=== PATIENT | male | born 1965 | race Hispanic/Latino ===

== ENCOUNTER 2017-10-05 22:48 | Emergency (ER) | payer OTHER, SELFPAY ==
[2017-10-05] MEDS ORDERED: ONDANSETRON 4 MG/2 ML VIAL ONE (23:35)
[2017-10-05] MEDS ORDERED: FENTANYL CITR 100 MCG/2 ML ONE (23:35)
[2017-10-05] MEDS ORDERED: NA CHLORIDE 0.9% 1,000 ML ONE (23:35)
[2017-10-05 23:46] LABS: Absolute Lymphocytes (CBC) 2.1 K/uL (0.7-4.9); Absolute Monocytes 1.3 K/uL (0.1-1.3); Absolute Neutrophil 7.9 K/uL (1.8-8.0); Basophils % 1.1 % (0-1.3); Eosinophils % 1.9 % (0-4.4); Hematocrit 42.3 % (39.6-49.0); Lymphocytes % 17.9 % (15.3-44.8); MCH 29.3 pg (27.0-35.0); MCV 88.5 fL (80-100); MPV 9.7 fL (7.6-11.3); Monocytes % 11.3 % (3.3-12.3); RBC Red Blood Cell Count 4.78 M/uL (4.33-5.43)
[2017-10-05 23:47] LABS: Protime INR 1.19
[2017-10-06 00:04] LABS: Potassium 3.5 mEq/L (3.6-5.0)
[2017-10-06 00:10] LABS: Albumin 3.5 g/dL (3.2-5.5); Bilirubin Direct 0.1 mg/dL (0-0.2); Bilirubin Total 0.6 mg/dL (0.3-1.2); CKMB Creatine Kinase MB 0.9 ng/ml (0.3-4.0); Magnesium 2.1 mg/dL (1.8-2.5); Protein, Total 7.6 g/dL (6.0-8.3)
[2017-10-06 01:14] LABS: Urine Blood TRACE (NEG); Urine Glucose NEGATIVE (NEG); Urine Protein 1+ (NEG); Urine Specific Gravity >1.030 (1.005-1.030)
--- NOTE | 2017-10-06 01:32 | EDPHYS ---
Physician Documentation [facility] Name: Justin Khan Age: 52 yrs Sex: Male : 1965 Arrival Date: 10/05/2017 Time: 22:50 Bed 4 Private MD: ED Physician Ernst Thomas HPI: 10/05 23:10 This 52 yrs old Male presents to ER via EMS with complaints of Left body pain. heather 23:10 The patient presents with decreased range of motion, pain. The complaints affect the heather lateral aspect of left thigh, lateral aspect of left knee, lateral aspect of left calf, left lateral ankle, left hamstring, posterior aspect of left knee, left calf, left Achilles, medial aspect of left thigh, medial aspect of left knee, medial aspect of left calf, left medial ankle, left quadriceps, left knee, left sofia and anterior aspect of left ankle. Onset: The symptoms/episode began/occurred 4 day(s) ago. Modifying factors: The symptoms are alleviated by nothing. the symptoms are aggravated by movement. Associated signs and symptoms: Pertinent positives: of the left arm and left leg. Historical: - Allergies: 22:53 PENICILLINS; fc - Home Meds: 22:53 None [Active]; fc - PMHx: 22:53 Enlarged Prostate; fc - PSHx: 22:53 Knee surgery; fc - Immunization history:: Last tetanus immunization: up to date. - Social history:: Smoking status: Patient uses tobacco products, denies chronic smoking, but will smoke occasionally, Patient uses alcohol, occasionally. street drugs, marijuana. - Family history:: not pertinent. ROS: 23:10 Eyes: Negative for injury, pain, redness, and discharge, ENT: Negative for injury, heather pain, and discharge, Neck: Negative for injury, pain, and swelling, Respiratory: Negative for shortness of breath, cough, wheezing, and pleuritic chest pain, Back: Negative for injury and pain, : Negative for injury, bleeding, discharge, and swelling, Skin: Negative for injury, rash, and discoloration, Neuro: Negative for headache, weakness, numbness, tingling, and seizure, Psych: Negative for depression, anxiety, suicide ideation, homicidal ideation, and hallucinations, Allergy/Immunology: Negative for hives, rash, and allergies, Endocrine: Negative for neck swelling, polydipsia, polyuria, polyphagia, and marked weight changes, Hematologic/Lymphatic: Negative for swollen nodes, abnormal bleeding, and unusual bruising. 23:10 Constitutional: Positive for malaise. 23:10 Cardiovascular: Positive for chest pain. 23:10 Abdomen/GI: Positive for abdominal pain. 23:10 MS/extremity: Positive for decreased range of motion, pain, swelling, tenderness, of the left leg. Exam: 23:10 Constitutional: This is a well developed, well nourished patient who is awake, alert, heather and in no acute distress. Head/Face: Normocephalic, atraumatic. Eyes: Pupils equal round and reactive to light, extra-ocular motions intact. Lids and lashes normal. Conjunctiva and sclera are non-icteric and not injected. Cornea within normal limits. Periorbital areas with no swelling, redness, or edema. ENT: Nares patent. No nasal discharge, no septal abnormalities noted. Tympanic membranes are normal and external auditory canals are clear. Oropharynx with no redness, swelling, or masses, exudates, or evidence of obstruction, uvula midline. Mucous membranes moist. Neck: Trachea midline, no thyromegaly or masses palpated, and no cervical lymphadenopathy. Supple, full range of motion without nuchal rigidity, or vertebral point tenderness. No Meningismus. Chest/axilla: Normal chest wall appearance and motion. Nontender with no deformity. No lesions are appreciated. Cardiovascular: Regular rate and rhythm with a normal S1 and S2. No gallops, murmurs, or rubs. Normal PMI, no JVD. No pulse deficits. Respiratory: Lungs have equal breath sounds bilaterally, clear to auscultation and percussion. No rales, rhonchi or wheezes noted. No increased work of breathing, no retractions or nasal flaring. Abdomen/GI: Soft, non-tender, with normal bowel sounds. No distension or tympany. No guarding or rebound. No evidence of tenderness throughout. Male : Normal genitalia with no discharge or lesions. Skin: Warm, dry with normal turgor. Normal color with no rashes, no lesions, and no evidence of cellulitis. MS/ Extremity: Pulses equal, no cyanosis. Neurovascular intact. Full, normal range of motion. Neuro: Awake and alert, GCS 15, oriented to person, place, time, and situation. Cranial nerves II-XII grossly intact. Motor strength 5/5 in all extremities. Sensory grossly intact. Cerebellar exam normal. Normal gait. Psych: Awake, alert, with orientation to person, place and time. Behavior, mood, and affect are within normal limits. 23:10 Back: pain, that is mild, that is moderate, ROM is normal, normal spinal alignment noted, CVA tenderness, that is mild, muscle spasm, is not present. Vital Signs: 22:53 Weight 90.72 kg (R); Height 5 ft. 9 in. (175.26 cm) (R); Pain 10/10; fc 23:06 BP 142 / 98; Pulse 95; Resp 18; Temp 98.5(O); Pulse Ox 100% on R/A; Pain 10; lp1 10/06 00:04 BP 123 / 84; Pulse 81; Resp 20; Pulse Ox 98% on R/A; lp1 01:30 BP 124 / 69; Pulse 87; Resp 20; Pulse Ox 98% on R/A; lp1 02:00 BP 123 / 66; Pulse 89; Resp 13; Pulse Ox 99% on R/A; lp1 02:58 BP 126 / 79; Pulse 84; Resp 19; Pulse Ox 98% on R/A; lp1 04:00 BP 109 / 76; Pulse 75; Resp 19; Pulse Ox 100% on R/A; lp1 05:00 BP 127 / 74; Pulse 80; Resp 20; Pulse Ox 97% on R/A; lp1 06:07 BP 127 / 79; Pulse 84; Resp 18; Pulse Ox 97% on R/A; lp1 10/05 22:53 Body Mass Index 29.53 (90.72 kg, 175.26 cm) fc MDM: 10/05 23:03 Patient medically screened. [facility] 23:14 Data reviewed: vital signs, nurses notes, lab test result(s), EKG, radiologic studies, [facility] CT scan, plain films. 10/05 23:09 Order name: Basic Metabolic Panel; Complete Time: 00:38 [facility] 10/05 23:09 Order name: BNP; Complete Time: 00:38 [facility] 10/05 23:09 Order name: CBC with Diff; Complete Time: 00:38 [facility] 10/05 23:09 Order name: Ckmb; Complete Time: 00:38 [facility] 10/05 23:09 Order name: CPK; Complete Time: 00:38 [facility] 10/05 23:09 Order name: LFT's; Complete Time: 00:38 [facility] 10/05 23:09 Order name: Magnesium; Complete Time: 00:38 [facility] 10/05 23:09 Order name: PT-INR; Complete Time: 00:38 [facility] 10/05 23:09 Order name: Ptt, Activated; Complete Time: 00:38 [facility] 10/05 23:09 Order name: Troponin (emerg Dept Use Only); Complete Time: 00:38 [facility] 10/05 23:09 Order name: XRAY Chest (1 view) [facility] 10/05 23:09 Order name: Lipase; Complete Time: 00:38 [facility] 10/05 23:09 Order name: Urine Culture [facility] 10/06 00:47 Order name: Urine Dipstick--Ancillary (enter results); Complete Time: 01:27 [facility] 10/05 23:09 Order name: EKG; Complete Time: 23:10 [facility] 10/05 23:09 Order name: Cardiac monitoring; Complete Time: 23:13 [facility] 10/05 23:09 Order name: EKG - Nurse/Tech; Complete Time: 23:13 [facility] 10/05 23:09 Order name: IV Saline Lock; Complete Time: 23:13 [facility] 10/05 23:09 Order name: CT Aorta for Dissection [facility] 10/05 23:09 Order name: Labs collected and sent; Complete Time: 23:13 [facility] 10/05 23:09 Order name: O2 Per Protocol; Complete Time: 23:13 [facility] 10/05 23:09 Order name: O2 Sat Monitoring; Complete Time: 23:13 [facility] 10/05 23:09 Order name: Urine Dipstick-Ancillary (obtain specimen); Complete Time: 00:48 [facility] Administered Medications: 23:22 Drug: NS 0.9% 1000 ml Route: IV; Rate: 125 ml/hr; Site: right antecubital; 10/06 06:32 Follow up: IV Status: Infusion continued upon transfer [facility] 10/05 23:22 Drug: fentaNYL (PF) 50 mcg Route: IVP; Site: right antecubital; 10/06 00:07 Follow up: Response: Pain is decreased [facility] 10/05 23:23 Drug: Zofran 4 mg Route: IVP; Site: right antecubital; 1 10/06 00:07 Follow up: Response: No adverse reaction lp1 01:34 Drug: Heparin (DVT/PE- Bolus per protocol) - HEParin 80 units/kg {Co-Signature: lp1 aa1 (Jayla Martin RN).} Route: IVP; Site: right antecubital; 02:30 Follow up: Response: No adverse reaction lp1 01:35 Drug: Potassium Chloride 20 mEq Route: PO; aa1 02:30 Follow up: Response: No adverse reaction lp1 01:35 Drug: Rocephin - (cefTRIAXone) 1 grams Route: IVPB; Infused Over: 30 mins; Site: right aa1 antecubital; 02:30 Follow up: Response: No adverse reaction; IV Status: Completed infusion lp1 01:35 Drug: Lovenox 1 mg/kg Route: Sub-Q; Site: right lower abdomen; aa1 02:30 Follow up: Response: No adverse reaction lp1 01:53 Drug: Ativan 0.5 mg Route: IVP; Site: right antecubital; aa1 02:30 Follow up: Response: Marked relief of symptoms lp1 01:53 Drug: fentaNYL (PF) 25 mcg Route: IVP; Site: right antecubital; aa1 02:30 Follow up: Response: Marked relief of symptoms lp1 05:50 Drug: Demerol 25 mg Route: IVP; Site: right antecubital; lp1 06:32 Follow up: Response: Pain is decreased lp1 05:50 Drug: Zofran 4 mg Route: IVP; Site: right antecubital; lp1 06:32 Follow up: Response: No adverse reaction lp1 Disposition: 10/06/17 01:32 Transfer ordered to [facility]. Diagnosis are Saddle embolus of pulmonary artery without acute cor pulmonale - unknown, Chest pain on breathing, Cystitis, Acute embolism and thrombosis of unspecified deep veins of left lower extremity. - Reason for transfer: Higher level of care. - Accepting physician is to [facility], icu. - Condition is Serious. - Problem is new. - Symptoms are unchanged. Signatures: Dispatcher [employer] EDMS Beth Bower RN RN aa1 Ernst Thomas MD MD cha Chretien, Felicia, RN RN fc Pena, Laura, RN RN lp1 Jayla Martin RN lp1
--- NOTE | 2017-10-06 01:32 | ER ---
Nurse's Notes [facility] Name: Justin Khan Age: 52 yrs Sex: Male : 1965 Arrival Date: 10/05/2017 Time: 22:50 Bed 4 Private MD: Diagnosis: Saddle embolus of pulmonary artery without acute cor pulmonale-unknown;Chest pain on breathing;Cystitis;Acute embolism and thrombosis of unspecified deep veins of left lower extremity Presentation: 10/05 22:50 Presenting complaint: Patient states: that for the pain 4 days he has been having left fc sided body pain. Just had sher cath removed last week after it was inserted for UTI and enlarged prostate. He also does continue to have burning with urination. The pain he is having to his left body is burning and sharp. Transition of care: patient was not received from another setting of care. Onset of symptoms was October 01, 2017. Care prior to arrival: None. 22:50 Method Of Arrival: EMS: [facility] 22:50 Acuity: DERIC 3 fc Historical: - Allergies: 22:53 PENICILLINS; fc - Home Meds: 22:53 None [Active]; fc - PMHx: 22:53 Enlarged Prostate; fc - PSHx: 22:53 Knee surgery; fc - Immunization history:: Last tetanus immunization: up to date. - Social history:: Smoking status: Patient uses tobacco products, denies chronic smoking, but will smoke occasionally, Patient uses alcohol, occasionally. street drugs, marijuana. - Family history:: not pertinent. Screenin:54 Abuse screen: Denies threats or abuse. Nutritional screening: No deficits noted. Tuberculosis screening: No symptoms or risk factors identified. Fall Risk None identified. Assessment: 23:07 General: Appears distressed, Behavior is anxious, restless. Pain: Complains of pain in lp1 left lateral anterior chest Pain radiates to left arm and left leg Pain currently is 10 out of 10 on a pain scale. Quality of pain is described as sharp, stabbing, Pain began gradually, Noted to be grimacing, moaning, restless. Neuro: Level of Consciousness is awake, alert, obeys commands, Oriented to person, place, time, situation, Intact. Cardiovascular: Patient's skin is warm and dry. Respiratory: Reports pain with respiration Airway is patent Trachea midline Respiratory effort is even, unlabored, Respiratory pattern is regular, symmetrical, Breath sounds are clear bilaterally. GI: No signs and/or symptoms were reported involving the gastrointestinal system. : No signs and/or symptoms were reported regarding the genitourinary system. EENT: No signs and/or symptoms were reported regarding the EENT system. Derm: Skin is pink, warm \T\ dry. Skin temperature is warm. Musculoskeletal: Circulation, motion, and sensation intact. Range of motion: intact in all extremities. 10/06 00:04 Reassessment: Patient appears in no apparent distress at this time. Patient resting, lp1 comfortably, eyes closed, respirations unlabored. 01:00 Reassessment: Patient appears in no apparent distress at this time. Patient and/or lp1 family updated on plan of care and expected duration. Pain level reassessed. Patient is alert, oriented x 3, equal unlabored respirations, skin warm/dry/pink. 02:00 Reassessment: Patient is alert, oriented x 3, equal unlabored respirations, skin lp1 warm/dry/pink. Patient aware of need for transfer. 03:00 Reassessment: Report called to Quiana Loving RN at [facility] ICU. Respiratory: lp1 Respiratory effort is even, Respiratory pattern is regular, Breath sounds are clear bilaterally. 04:00 Reassessment: Patient appears in no apparent distress at this time. Patient and/or lp1 family updated on plan of care and expected duration. Pain level reassessed. Patient resting, eyes closed, respirations unlabored. 05:00 Reassessment: Patient appears in no apparent distress at this time. No changes from lp1 previously documented assessment. 06:05 Reassessment: Spoke to DORIAN Araya at [facility]; Aware of transfer pending due to no 1 ambulance availability; Will update when patient is able to be transferred. Vital Signs: 10/05 22:53 Weight 90.72 kg (R); Height 5 ft. 9 in. (175.26 cm) (R); Pain 10/10; fc 23:06 BP 142 / 98; Pulse 95; Resp 18; Temp 98.5(O); Pulse Ox 100% on R/A; Pain 10/10; lp1 10/06 00:04 BP 123 / 84; Pulse 81; Resp 20; Pulse Ox 98% on R/A; lp1 01:30 BP 124 / 69; Pulse 87; Resp 20; Pulse Ox 98% on R/A; lp1 02:00 BP 123 / 66; Pulse 89; Resp 13; Pulse Ox 99% on R/A; lp1 02:58 BP 126 / 79; Pulse 84; Resp 19; Pulse Ox 98% on R/A; lp1 04:00 BP 109 / 76; Pulse 75; Resp 19; Pulse Ox 100% on R/A; lp1 05:00 BP 127 / 74; Pulse 80; Resp 20; Pulse Ox 97% on R/A; lp1 06:07 BP 127 / 79; Pulse 84; Resp 18; Pulse Ox 97% on R/A; lp1 10/05 22:53 Body Mass Index 29.53 (90.72 kg, 175.26 cm) ED Course: 10/05 22:50 Patient arrived in ED. 22:52 Triage completed. 22:53 Arm band placed on Patient placed in an exam room, on a stretcher. 22:54 Patient has correct armband on for positive identification. Bed in low position. Call fc light in reach. Side rails up X2. 22:54 No provider procedures requiring assistance completed. 23:02 Inserted saline lock: 20 gauge in right antecubital area, using aseptic technique. bp Blood collected. 23:03 Ernst Thomas MD is Attending Physician. [facility] 23:06 Jayla Martin, DORIAN is Primary Nurse. lp1 23:09 EKG done, by ED staff, reviewed by Ernst Thomas MD. lp1 23:31 X-ray completed. Portable x-ray completed in exam room. Patient tolerated procedure kc2 well. 23:34 XRAY Chest (1 view) In Process Unspecified. EDMS 03 00:35 Urine collected: clean catch specimen, layla colored. lp1 00:52 CT completed. Patient tolerated procedure well. Patient moved to CT via stretcher. vr Patient moved back from CT. 00:53 CT Aorta for Dissection In Process Unspecified. EDMS 06:30 Patient transferred, IV remains in place. lp1 Administered Medications: 10/05 23:22 Drug: NS 0.9% 1000 ml Route: IV; Rate: 125 ml/hr; Site: right antecubital; lp1 10/06 06:32 Follow up: IV Status: Infusion continued upon transfer lp1 10/05 23:22 Drug: fentaNYL (PF) 50 mcg Route: IVP; Site: right antecubital; lp1 10/06 00:07 Follow up: Response: Pain is decreased lp1 10/05 23:23 Drug: Zofran 4 mg Route: IVP; Site: right antecubital; lp1 10/06 00:07 Follow up: Response: No adverse reaction lp1 01:34 Drug: Heparin (DVT/PE- Bolus per protocol) - HEParin 80 units/kg {Co-Signature: lp1 aa1 (Jayla Martin RN).} Route: IVP; Site: right antecubital; 02:30 Follow up: Response: No adverse reaction lp1 01:35 Drug: Potassium Chloride 20 mEq Route: PO; aa1 02:30 Follow up: Response: No adverse reaction lp1 01:35 Drug: Rocephin - (cefTRIAXone) 1 grams Route: IVPB; Infused Over: 30 mins; Site: right aa1 antecubital; 02:30 Follow up: Response: No adverse reaction; IV Status: Completed infusion lp1 01:35 Drug: Lovenox 1 mg/kg Route: Sub-Q; Site: right lower abdomen; aa1 02:30 Follow up: Response: No adverse reaction lp1 01:53 Drug: Ativan 0.5 mg Route: IVP; Site: right antecubital; aa1 02:30 Follow up: Response: Marked relief of symptoms lp1 01:53 Drug: fentaNYL (PF) 25 mcg Route: IVP; Site: right antecubital; aa1 02:30 Follow up: Response: Marked relief of symptoms lp1 05:50 Drug: Demerol 25 mg Route: IVP; Site: right antecubital; lp1 06:32 Follow up: Response: Pain is decreased lp1 05:50 Drug: Zofran 4 mg Route: IVP; Site: right antecubital; lp1 06:32 Follow up: Response: No adverse reaction lp1 Outcome: 01:32 ER care complete, transfer ordered by . heather 03:00 critical lp1 03:00 Instructed on the need for transfer. 06:31 Transferred by ground EMS to [facility], Transfer form completed. lp1 X-rays sent w/ patient. 06:32 Patient left the ED. lp1 Signatures: Dispatcher [employer] EDMS Beth Bower RN RN aa1 Ernst Thomas MD MD cha Chretien, Felicia, RN RN Marianna Mann Laura, RN RN lp1 Aisha Joy Brian, RN RN bp Jayla Martin RN lp1 Corrections: (The following items were deleted from the chart) 10/05 23:23 23:06 BP 142 / 98; Pulse 95bpm; Resp 18bpm; Pulse Ox 100% RA; Pain 10/10; lp1 lp1
[2017-10-06] MEDS ORDERED: ENOXAPARIN 100 MG/ML SYR SQ ONE (01:46)
[2017-10-06] MEDS ORDERED: HEPARIN 5000 UNIT/ML 1 ML VIAL ONE (01:46)
[2017-10-06] MEDS ORDERED: POTASSIUM CL SA 10 MEQ TAB PO ONE (01:51)
[2017-10-06] MEDS ORDERED: CEFTRIAXONE/SWI 1gm 1 GM/10 ML SYR ONE (01:59)
[2017-10-06] MEDS ORDERED: FENTANYL CITR 100 MCG/2 ML ONE (02:08)
[2017-10-06] MEDS ORDERED: LORazepam 2 MG/ML VIAL ONE (02:08)
[2017-10-06] MEDS ORDERED: ONDANSETRON 4 MG/2 ML VIAL ONE (06:04)
[2017-10-06] MEDS ORDERED: MEPERIDINE HCL 25 MG/0.5 ML ONE (06:04)
--- NOTE | 2017-10-06 12:25 | RAD REPORT ---
EXAM DESCRIPTION: CT - Angio Aorta For Dissection - 10/06/2017 12:53 am CLINICAL HISTORY: Chest pain radiating to the back. COMPARISON: None. TECHNIQUE: CT angiography of the aorta was performed with volume rendering. All CT scans are performed using dose optimization technique as appropriate and may include automated exposure control or mA/KV adjustment according to patient size. FINDINGS: A left aortic arch is present with normal branching pattern of the great vessels.No acute aortic finding is seen such as aneurysm, penetrating ulcer or dissection. The celiac axis, SMA, JANET and renal arteries are widely patent. Large bilateral pulmonary thromboembolism seen including a saddle pulmonary embolism. A mild RV strai n pattern is suspected. Small hazy opacity in the left lower lobe laterally could represent a small area of pulmonary infarct ion. The liver demonstrates no focal mass or biliary dilatation.The spleen, pancreas, adrenal glands and k idneys are within normal limits for arterial phase imaging. No bowel obstruction, free fluid or abscess.No pathologic enlarged lymphadenopathy identified. Degenerative changes are present with pars defects bilaterally at L5. Grade 1 anterolisthesis of L5 o n S1 noted. Moderate prostatomegaly. The left common femoral vein appears hazy an enlarged raising suspicion for DVT. IMPRESSION: No acute aortic finding is demonstrated. Bilateral pulmonary thromboembolism including saddle embolism. Mild RV strain pattern is present. Probable DVT involving the left common femoral vein. Sonographic correlation may be considered. Questionable finding of a small pulmonary infarction in the left base laterally. A preliminary written report was provided at the time of the study, and the report was reviewed prior to final dictation.
--- NOTE | 2017-10-06 12:43 | RAD REPORT ---
EXAM DESCRIPTION: RAD - Chest Single View - 10/05/2017 11:35 pm CLINICAL HISTORY: Chest pain. COMPARISON: None. FINDINGS: Portable technique limits examination quality. The lungs are underinflated but grossly clear. The heart is normal in size. No displaced fractures. IMPRESSION: No acute intrathoracic process suspected.
--- NOTE | 2017-10-07 12:52 | EKG ---
Test Date: 2017-10-05 Test Time: 22:58:51 [employer]eller: SINCERE MEASUREMENT RESULTS: Intervals: Rate: 97 SD: 128 QRSD: 80 QT: 340 QTc: 431 [place]: P: 41 SD: 128 QRS: -19 T: 57 INTERPRETIVE STATEMENTS: Normal sinus rhythm Normal ECG No previous ECG available for comparison Electronically Signed On 10-07-17 12:51:36 CDT by Nael Saldivar
== END 2017-10-06 06:32 | disposition short-term general hospital (02) ==
LOC: ER 22:48
DX: I26.92 Saddle embolus of pulmonary artery without acute cor pulmonale (principal); I82.409 Acute embolism and thrombosis of unspecified deep veins of unspecified lower extremity; N30.90 Cystitis, unspecified without hematuria; Z72.0 Tobacco use; Z88.0 Allergy status to penicillin
CPT/HCPCS: 36415; 71045; 71275; 74175; 80048; 80076; 81003; 82550; 82553; 83690; 83735; 83880; 84484; 85025; 85610; 85730; 87077; 87086; 87088; 87186; 93005; 96361; 96365; 96372; 96375; 99285; J0696; J1644; J1650; J2175; J2405; J3010; J7030; Q9967

== ENCOUNTER 2018-10-06 21:40 | Observation (INO) | payer SELFPAY ==
--- OUTSIDE RECORDS SUMMARY | 2018-10-06 21:43 | XMS REPORT | Clinical Summary ---
:[address] [facility] Address [address] [place] [address] Care Team Providers Name Role Phone Marco Primary Care Provider Allergies Active Allergy Reactions Severity Noted Date Comments Penicillins 10/06/2017 Medications Medication Sig Dispensed Refills Start Date End Date Status apixaban (ELIQUIS) 5 mg Take 10 mg twice 60 tablet 3 10/13/2017 Active Tab tablet a day for 6 days, then take 5 mg twice a day.. 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 BPH (benign prostatic hyperplasia) 10/06/2017 Cocaine abuse 10/06/2017 Encounters Date Type Specialty Care Team Description 10/11/2017 Surgery Bandeali, THROMBOLYSIS Marlon ARTERIAL / VENOUS - MD Joshua SUBSEQUENT DAY MCR - IP PROC ONLY 10/10/2017 Surgery Bandeali, THROMBOLYSIS Marlon ARTERIAL - INITIAL MD Joshua DAY ALEXIS - IP PROC ONLY 10/06/2017 Surgery Bandeali, THROMBOLYSIS VENOUS Marlon - INITIAL DAY ALEXIS Lewis MD - IP PROC ONLY 10/06/2017 - Hospital Encounter Cardiology Jalyn Farnsworth, Acute saddle pulmonary embolism with acute cor pulmonale (HCC) (Primary Dx); 10/13/2017 Acute deep vein thrombosis (DVT) of femoral vein of both lower extremities ( HCC); [place], Benign prostatic hyperplasia, unspecified whether lower urinary tract symptoms present; MD Ari Cocaine abuse; Hepatitis C virus infection without hepatic coma, unspecified chronicity 10/06/2017 Orders Only General Internal Medicine after 10/05/2017 Social History Tobacco Use Types Packs/Day Years Used Date Unknown If Ever Smoked Sex Assigned at Date Recorded Not on file Job Start Date Occupation Industry Not on file Not on file Not on file Travel History Travel Start Travel End No recent travel history available. Last Filed Vital Signs Vital Sign Reading Time Taken Blood Pressure 155/69 10/13/2017 11:18 AM CDT Pulse 74 10/13/2017 11:18 AM CDT Temperature 36.7 C (98.1 F) 10/13/2017 11:18 AM CDT Respiratory Rate 18 10/13/2017 11:18 AM CDT Oxygen Saturation 92% 10/13/2017 11:18 AM CDT Inhaled Oxygen Concentration - - Weight 88.9 kg (196 lb) 10/13/2017 9:04 AM CDT Height 175.3 cm (5' 9") 10/06/2017 8:13 AM CDT Body Mass Index 28.94 10/13/2017 9:04 AM CDT Plan of Treatment Not on file Procedures Procedure Name Priority Date/Time Associated Diagnosis Comments CARDIAC CATH REPORT - 10/16/2017 8:52 SCAN PM CDT REPORT OF PROCEDURE - 10/16/2017 9:14 ENDOSCOPY SCAN AM CDT RHYTHM STRIP - SCAN 10/16/2017 9:14 AM CDT MAGNESIUM Routine 10/13/2017 3:17 Results for this AM CDT procedure are in the results section. CBC (HEMOGRAM ONLY) Routine 10/13/2017 3:17 Results for this AM CDT procedure are in the results section. BASIC METABOLIC PANEL Routine 10/13/2017 3:17 Results for this (7) AM CDT procedure are in the results section. APTT Routine 10/13/2017 3:17 Results for this AM CDT procedure are in the results section. APTT Routine 10/12/2017 8:21 Results for this PM CDT procedure are in the results section. APTT Routine 10/12/2017 12:44 Results for this PM CDT procedure are in the results section. APTT Routine 10/12/2017 5:27 Results for this AM CDT procedure are in the results section. MAGNESIUM Routine 10/12/2017 5:27 Results for this AM CDT procedure are in the results section. BASIC METABOLIC PANEL Routine 10/12/2017 5:27 Results for this (7) AM CDT procedure are in the results section. CBC (HEMOGRAM ONLY) Routine 10/12/2017 5:27 Results for this AM CDT procedure are in the results section. CARDIAC CATH REPORT - 10/11/2017 8:10 SCAN PM CDT THROMBOLYSIS ARTERIAL 10/11/2017 11:52 thrombolysis / VENOUS - SUBSEQUENT AM CDT DAY MCR - IP PROC ONLY Case Notes [id number] MAGNESIUM Routine 10/11/2017 4:37 AM Results for this CDT procedure are in the results section. BASIC METABOLIC PANEL Routine 10/11/2017 4:37 AM Results for this (7) CDT procedure are in the results section. CBC (HEMOGRAM ONLY) Routine 10/11/2017 4:37 AM Results for this CDT procedure are in the results section. APTT Routine 10/11/2017 4:37 AM Results for this CDT procedure are in the results section. CT BRAIN WITHOUT IV JUAN 10/11/2017 1:45 AM Results for this CONTRAST CDT procedure are in the results section. THROMBOLYSIS ARTERIAL - 10/10/2017 12:41 PM chest pain INITIAL DAY MCR - IP CDT PROC ONLY Case Notes Rm-Bd: 6s1-01. 24mGy APTT Routine 10/10/2017 7:46 AM CDT PROTHROMBIN TIME/INR Routine 10/10/2017 4:36 AM CDT APTT Routine 10/10/2017 4:36 AM CDT MAGNESIUM Routine 10/10/2017 4:36 AM CDT BASIC METABOLIC PANEL (7) Routine 10/10/2017 4:36 AM CDT CBC (HEMOGRAM ONLY) Routine 10/10/2017 4:36 AM CDT APTT Routine 10/09/2017 4:46 PM CDT CARDIAC CATH REPORT - SCAN 10/09/2017 3:10 PM CDT APTT Routine 10/09/2017 10:18 AM CDT CBC W/PLT COUNT & AUTO Routine 10/09/2017 12:40 AM CDT Results for this DIFFERENTIAL procedure are in the results section. CBC W/PLT COUNT & AUTO Routine 10/09/2017 12:40 AM CDT Results for this DIFFERENTIAL procedure are in the results section. MAGNESIUM Routine 10/09/2017 12:40 AM CDT BASIC METABOLIC PANEL (7) Routine 10/09/2017 12:40 AM CDT APTT Routine 10/09/2017 12:[address] ABDOMEN/PELVIS WITH IV Routine 10/08/2017 11:39 PM CDT Results for this CONTRAST procedure are in the results section. CT CHEST PE TEST DESIGN Routine 10/08/2017 11:39 PM CDT APTT Routine 10/08/2017 2:38 PM CDT APTT Routine 10/08/2017 7:28 AM CDT MAGNESIUM Routine 10/08/2017 5:02 AM CDT BASIC METABOLIC PANEL (7) Routine 10/08/2017 5:02 AM CDT CBC (HEMOGRAM ONLY) Routine 10/08/2017 5:02 AM CDT APTT Routine 10/08/2017 2:29 AM CDT PSA, TOTAL AND FREE STAT 10/07/2017 8:54 AM CDT APTT Routine 10/07/2017 4:58 AM CDT FIBRINOGEN Routine 10/07/2017 4:58 AM CDT MAGNESIUM Routine 10/07/2017 4:55 AM CDT BASIC METABOLIC PANEL (7) Routine 10/07/2017 4:55 AM CDT CBC (HEMOGRAM ONLY) Routine 10/07/2017 4:55 AM CDT HEPATITIS C PCR, Routine 10/07/2017 4:55 AM CDT Results for this QUANTITATIVE procedure are in the results section. BETA-2 GLYCOPROTEIN Routine 10/07/2017 4:55 AM CDT Results for this ANTIBODIES procedure are in the results section. CARDIOLIPIN ANTIBODIES, IGG Routine 10/07/2017 4:55 AM CDT Results for this AND IGM procedure are in the results section. PROTHROMBIN GENE MUTATION Routine 10/07/2017 4:55 AM CDT FACTOR 5 LEIDEN PCR Routine 10/07/2017 4:55 AM CDT Results for this (THROMBOTIC RISK) procedure are in the results section. PSA Routine 10/07/2017 4:55 AM CDT TROPONIN I STAT 10/07/2017 1:10 AM CDT PERIPHERAL VASCULAR REPORT - 10/06/2017 5:05 PM CDT SCAN HEPATITIS C ANTIBODY Routine 10/06/2017 4:12 PM CDT HIV-1 ANTIGEN WITH HIV-1/2 Routine 10/06/2017 4:12 PM CDT Results for this ANTIBODY procedure are in the results section. TROPONIN I STAT 10/06/2017 4:12 PM CDT DRUG SCREEN, URINE, Routine 10/06/2017 4:08 PM CDT COMPREHENSIVE ECHOCARDIOGRAM REPORT - SCAN 10/06/2017 3:50 PM CDT THROMBOLYSIS VENOUS - 10/06/2017 2:55 PM CDT PE INITIAL DAY MCR - IP PROC ONLY 2D ECHO W/ DOPPLER STAT 10/06/2017 10:55 AM CDT Results for this (CW/PW/COLOR) procedure are in the results section. ECG 12-LEAD Routine 10/06/2017 10:34 AM CDT Procedure Note - Interface, External Ris In - 10/06/2017 10:38 AM CDT Ventricular Rate 79 BPM Atrial Rate 79 BPM P-R Interval 142 ms QRS Duration 84 ms Q-T Interval 372 ms QTC Calculation(Bazett) 426 ms P Colon 64 degrees R Colon 9 degrees T Colon 17 degrees Normal sinus rhythm Normal ECG No previous ECGs available ECG 12-LEAD Routine 10/06/2017 10:34 AM CDT VENOUS DOPPLER LEGS Routine 10/06/2017 9:30 AM CDT Results for this BILATERAL procedure are in the results section. PROTHROMBIN TIME/INR Routine 10/06/2017 8:49 AM CDT APTT Routine 10/06/2017 8:49 AM CDT CBC W/PLT COUNT & AUTO Routine 10/06/2017 8:48 AM CDT Results for this DIFFERENTIAL procedure are in the results section. PLATELET COUNT Routine 10/06/2017 8:48 AM CDT CBC W/PLT COUNT & AUTO Routine 10/06/2017 8:48 AM CDT Results for this DIFFERENTIAL procedure are in the results section. B-TYPE NATRIURETIC FACTOR Routine 10/06/2017 8:48 AM CDT Results for this (BNP) procedure are in the results section. TROPONIN I STAT 10/06/2017 8:48 AM CDT MAGNESIUM Routine 10/06/2017 8:48 AM CDT PHOSPHORUS Routine 10/06/2017 8:48 AM CDT COMPREHENSIVE METABOLIC Routine 10/06/2017 8:48 AM CDT Results for this PANEL procedure are in the results section. after 10/05/2017 Results CARDIAC CATH REPORT - SCAN (10/16/2017 8:52 PM CDT) Narrative Performed At EKG-SCANNED (10/16/2017 9:14 AM CDT) Narrative Performed At RHYTHM STRIP - SCAN (10/16/2017 9:14 AM CDT) Narrative Performed At aPTT (10/13/2017 3:17 AM CDT)Only the most recent of15 resultswithin the time period is included. PTT 80.3 (H) 22.5 - 36.0 seconds [facility] Specimen Blood - Line, Venous Performing Organization Address City/State/Zipcode Phone Number [facility] [address] [place] [address] CENTER CBC (hemogram only) (10/13/2017 3:17 AM CDT)Only the most recent of6 resultswithin the time period is included. WBC 6.1 3.5 - 10.5 K/L [facility] RBC 3.88 (L) 4.63 - 6.08 M/L [facility] Hemoglobin 11.2 (L) 13.7 - 17.5 GM/DL [facility] Hematocrit 34.3 (L) 40.1 - 51.0 % [facility] MCV 88.4 79.0 - 92.2 fL [facility] MCH 28.9 25.7 - 32.2 pg [facility] MCHC 32.7 32.3 - 36.5 GM/DL [facility] RDW 11.9 11.6 - 14.4 % [facility] Platelets 196 150 - 450 K/CU MM [facility] MPV 10.6 9.4 - 12.4 fL [facility] nRBC 0 0 - 0 /100 WBC [facility] Specimen Blood - Line, Venous Performing Organization Address City/[facility] Phone Number [address] [address] CENTER Magnesium (10/13/2017 3:17 AM CDT)Only the most recent of8 resultswithin the time period is included. Magnesium 2.1 1.6 - 2.6 mg/dL [facility] Specimen Blood - Line, Venous Performing Organization Address City/[facility]/Zipcode Phone Number [address] [address] CENTER Basic Metabolic Panel (10/13/2017 3:17 AM CDT)Only the most recent of7 resultswithin the time period is included. Sodium 139 136 - 145 meq/L [facility] Potassium 4.3 3.5 - 5.1 meq/L [facility] Chloride 105 98 - 107 meq/L [facility] CO2 27 22 - 29 meq/L [facility] BUN 12 7 - 21 mg/dL [facility] Creatinine 0.82 0.57 - 1.25 mg/dL [facility] Glucose 92 70 - 105 mg/dL [facility] Calcium 8.4 8.4 - 10.2 mg/dL [facility] EGFR Comment: INSUFFICIENT CLINICAL mL/min/1.73 sq m [facility] DATA TO CALCULATE ESTIMATED [facility] GFR. Specimen Blood - Line, Venous Performing Organization Address City/State/Zipcode Phone Number [facility] [address] [place] [address] CENTER CARDIAC CATH REPORT - SCAN (10/11/2017 8:10 PM CDT) Narrative Performed At CT brain without IV contrast (10/11/2017 1:45 AM CDT) Narrative Performed At FINAL REPORT [employer] CT, BRAIN, WITHOUT CONTRAST CLINICAL INDICATION:Stroke COMPARISON: None TECHNIQUE:Noncontrast axial CT imaging of the brain and skull. DOSE REDUCTION: Dose modulation, iterative reconstruction, and/or weight-based adjustment of the mA/kV was utilized to reduce the radiation dose to as low as reasonably achievable. FINDINGS: Cerebral parenchyma: Unremarkable. Midline structures: Normally positioned. Cerebellum and brainstem: Normal. Ventricles: Normal volume. Extra-axial spaces: Unremarkable. Calvarium and skull base: Intact. Paranasal sinuses and mastoid air cells: Visible chambers are clear. Orbital contents: Included portions unremarkable. Additional findings: None. IMPRESSION: No acute intracranial abnormality. If there is persistent clinical concern for intracranial pathology, MR examination is recommended for further characterization. Signed: JR Abebe Robert MD Report Verified Date/Time:10/11/2017 01:48:25 Reading Location: [facility] [id number] Transitional Reading Room Procedure Note Interface, External Ris In - 10/11/2017 1:50 AM CDT FINAL REPORT CT, BRAIN, WITHOUT CONTRAST CLINICAL INDICATION: Stroke COMPARISON: None TECHNIQUE: Noncontrast axial CT imaging of the brain and skull. DOSE REDUCTION: Dose modulation, iterative reconstruction, and/or weight-based adjustment of the mA/kV was utilized to reduce the radiation dose to as low as reasonably achievable. FINDINGS: Cerebral parenchyma: Unremarkable. Midline structures: Normally positioned. Cerebellum and brainstem: Normal. Ventricles: Normal volume. Extra-axial spaces: Unremarkable. Calvarium and skull base: Intact. Paranasal sinuses and mastoid air cells: Visible chambers are clear. Orbital contents: Included portions unremarkable. Additional findings: None. IMPRESSION: No acute intracranial abnormality. If there is persistent clinical concern for intracranial pathology, MR examination is recommended for further characterization. Signed: JR Abebe Robert MD Report Verified Date/Time: 10/11/2017 01:48:25 Reading Location: [address] Transitional Reading Room Performing Organization Address City/[facility]/Zipcode Phone Number RIS Prothrombin time/INR (10/10/2017 4:36 AM CDT)Only the most recent of2 resultswithin the time period is included. Protime 15.0 (H) 11.7 - 14.7 seconds [facility] INR 1.2 <=5.9 [facility] Specimen Blood - Arm, Left Narrative Performed At [facility] RECOMMENDED COUMADIN/WARFARIN INR THERAPY RANGES STANDARD DOSE: 2.0 - 3.0 Includes: PROPHYLAXIS for venous thrombosis, systemic embolization; TREATMENT for venous thrombosis and/or pulmonary embolus. HIGH RISK: Target INR is 2.5-3.5 for patients with mechanical heart valves. Performing Organization Address City/State/Zipcode Phone Number [place] [phone] [place] [address] [phone] CENTER CARDIAC CATH REPORT - SCAN (10/09/2017 3:10 PM CDT) Narrative Performed At CBC with platelet count + automated diff (10/09/2017 12:40 AM CDT)Only the most recent of2 resultswithin the time period is included. WBC 6.9 3.5 - 10.5 K/L [facility] RBC 4.13 (L) 4.63 - 6.08 M/L [facility] Hemoglobin 12.0 (L) 13.7 - 17.5 GM/DL [facility] Hematocrit 35.1 (L) 40.1 - 51.0 % [facility] MCV 85.0 79.0 - 92.2 fL [facility] MCH 29.1 25.7 - 32.2 pg [facility] MCHC 34.2 32.3 - 36.5 GM/DL [facility] RDW 11.5 (L) 11.6 - 14.4 % [facility] Platelets 178 150 - 450 K/CU MM [facility] MPV 10.4 9.4 - 12.4 fL [facility] nRBC 0 0 - 0 /100 WBC [facility] % Neutros 61 % [facility] % Lymphs 21 % [facility] % Monos 13 % [facility] % Eos 4 % [facility] % Baso 1 % [facility] # Neutros 4.20 1.78 - 5.38 K/L [facility] # Lymphs 1.44 1.32 - 3.57 K/L [facility] # Monos 0.89 (H) 0.30 - 0.82 K/L [facility] # Eos 0.27 0.04 - 0.54 K/L [facility] # Baso 0.04 0.01 - 0.08 K/L [facility] Immature Granulocytes-Relative 1 0 - 1 % [facility] Specimen Blood Performing Organization Address City/State/Zipcode Phone Number [facility] [address] [place] [address] chest for pulmonary embolus (10/08/2017 11:39 PM CDT) Narrative Performed At FINAL REPORT [employer] CLINICAL HISTORY: Saddle pulmonary embolism diagnosed at an outside facility, status post catheter guided thrombolysis. Concern for underlying malignancy. FINDINGS: Multiple axial images of the chest, abdomen and pelvis were performed after the uncomplicated administration of IV contrast, utilizing a pulmonary embolism protocol for the chest portion. Post-processing coronal reformats of the chest were created and interpreted.Oral contrast was given. This exam was performed according to our departmental dose-optimization program, which includes automated exposure control, adjustment of the mA and/or kV according to patient size and/or use of the iterative reconstruction technique. Comparison: None. Chest: Pulmonary arteries: Pulmonary embolism is noted in the distal left pulmonary artery extending into segmental pulmonary arteries in the left lower lobe. Lung parenchyma: Low lung volumes. Patchy bibasilar opacities, probably atelectasis. No pulmonary nodule or mass. Pleural effusion: Trace left effusion Pneumothorax: None. Tracheobronchial tree: No significant findings. Pulmonary vasculature: No significant findings. Cardiac contours and great vessels: No significant findings. No CT evidence of right heart dysfunction. Mediastinum: No significant findings. Lymph Nodes: No adenopathy in the mediastinum or troy. Skeleton: No acute abnormality. Abdomen and pelvis: Liver: No significant findings. Gallbladder and biliary tree: No significant findings. Spleen: No significant findings. Adrenal Glands: No significant findings. Kidneys and ureters: No significant findings. Stomach and Duodenum: No significant findings. Pancreas: No significant findings. Bowel: No significant findings. Appendix: Normal. Bladder: No significant findings. Major vascular structures: Minimal atherosclerotic calcifications Reproductive organs: No significant findings. 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 IMPRESSION: Left lower lobe pulmonary emboli, as described. No saddle embolism is noted. Trace left pleural effusion and left greater than right bibasilar atelectasis versus pneumonitis. No evidence of primary or metastatic malignancy in the chest, abdomen or pelvis. Signed: Constantino Bonilla MD Report Verified Date/Time:10/09/2017 00:32:00 Reading Location: [address] Reading Room Procedure Note Interface, External Ris In - 10/09/2017 12:34 AM CDT FINAL REPORT CLINICAL HISTORY: Saddle pulmonary embolism diagnosed at an outside facility, status post catheter guided thrombolysis. Concern for underlying malignancy. FINDINGS: Multiple axial images of the chest, abdomen and pelvis were performed after the uncomplicated administration of IV contrast, utilizing a pulmonary embolism protocol for the chest portion. Post-processing coronal reformats of the chest were created and interpreted. Oral contrast was given. This exam was performed according to our departmental dose-optimization program, which includes automated exposure control, adjustment of the mA and/or kV according to patient size and/or use of the iterative reconstruction technique. Comparison: None. Chest: Pulmonary arteries: Pulmonary embolism is noted in the distal left pulmonary artery extending into segmental pulmonary arteries in the left lower lobe. Lung parenchyma: Low lung volumes. Patchy bibasilar opacities, probably atelectasis. No pulmonary nodule or mass. Pleural effusion: Trace left effusion Pneumothorax: None. Tracheobronchial tree: No significant findings. Pulmonary vasculature: No significant findings. Cardiac contours and great vessels: No significant findings. No CT evidence of right heart dysfunction. Mediastinum: No significant findings. Lymph Nodes: No adenopathy in the mediastinum or troy. Skeleton: No acute abnormality. Abdomen and pelvis: Liver: No significant findings. Gallbladder and biliary tree: No significant findings. Spleen: No significant findings. Adrenal Glands: No significant findings. Kidneys and ureters: No significant findings. Stomach and Duodenum: No significant findings. Pancreas: No significant findings. Bowel: No significant findings. Appendix: Normal. Bladder: No significant findings. Major vascular structures: Minimal atherosclerotic calcifications Reproductive organs: No significant findings. 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 IMPRESSION: Left lower lobe pulmonary emboli, as described. No saddle embolism is noted. Trace left pleural effusion and left greater than right bibasilar atelectasis versus pneumonitis. No evidence of primary or metastatic malignancy in the chest, abdomen or pelvis. Signed: Constantino Bonilla MD Report Verified Date/Time: 10/09/2017 00:32:00 Reading Location: [address] Reading Room Performing Organization Address City/State/Zipcode Phone Number [employer] CT abdomen/pelvis with IV contrast (10/08/2017 11:39 PM CDT) Narrative Performed At FINAL REPORT [employer] CLINICAL HISTORY: Saddle pulmonary embolism diagnosed at an outside facility, status post catheter guided thrombolysis. Concern for underlying malignancy. FINDINGS: Multiple axial images of the chest, abdomen and pelvis were performed after the uncomplicated administration of IV contrast, utilizing a pulmonary embolism protocol for the chest portion. Post-processing coronal reformats of the chest were created and interpreted.Oral contrast was given. This exam was performed according to our departmental dose-optimization program, which includes automated exposure control, adjustment of the mA and/or kV according to patient size and/or use of the iterative reconstruction technique. Comparison: None. Chest: Pulmonary arteries: Pulmonary embolism is noted in the distal left pulmonary artery extending into segmental pulmonary arteries in the left lower lobe. Lung parenchyma: Low lung volumes. Patchy bibasilar opacities, probably atelectasis. No pulmonary nodule or mass. Pleural effusion: Trace left effusion Pneumothorax: None. Tracheobronchial tree: No significant findings. Pulmonary vasculature: No significant findings. Cardiac contours and great vessels: No significant findings. No CT evidence of right heart dysfunction. Mediastinum: No significant findings. Lymph Nodes: No adenopathy in the mediastinum or troy. Skeleton: No acute abnormality. Abdomen and pelvis: Liver: No significant findings. Gallbladder and biliary tree: No significant findings. Spleen: No significant findings. Adrenal Glands: No significant findings. Kidneys and ureters: No significant findings. Stomach and Duodenum: No significant findings. Pancreas: No significant findings. Bowel: No significant findings. Appendix: Normal. Bladder: No significant findings. Major vascular structures: Minimal atherosclerotic calcifications Reproductive organs: No significant findings. 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 IMPRESSION: Left lower lobe pulmonary emboli, as described. No saddle embolism is noted. Trace left pleural effusion and left greater than right bibasilar atelectasis versus pneumonitis. No evidence of primary or metastatic malignancy in the chest, abdomen or pelvis. Signed: Constantino Bonilla MD Report Verified Date/Time:10/09/2017 00:32:00 Reading Location: [address] Reading Room Procedure Note Interface, External Ris In - 10/09/2017 12:34 AM CDT FINAL REPORT CLINICAL HISTORY: Saddle pulmonary embolism diagnosed at an outside facility, status post catheter guided thrombolysis. Concern for underlying malignancy. FINDINGS: Multiple axial images of the chest, abdomen and pelvis were performed after the uncomplicated administration of IV contrast, utilizing a pulmonary embolism protocol for the chest portion. Post-processing coronal reformats of the chest were created and interpreted. Oral contrast was given. This exam was performed according to our departmental dose-optimization program, which includes automated exposure control, adjustment of the mA and/or kV according to patient size and/or use of the iterative reconstruction technique. Comparison: None. Chest: Pulmonary arteries: Pulmonary embolism is noted in the distal left pulmonary artery extending into segmental pulmonary arteries in the left lower lobe. Lung parenchyma: Low lung volumes. Patchy bibasilar opacities, probably atelectasis. No pulmonary nodule or mass. Pleural effusion: Trace left effusion Pneumothorax: None. Tracheobronchial tree: No significant findings. Pulmonary vasculature: No significant findings. Cardiac contours and great vessels: No significant findings. No CT evidence of right heart dysfunction. Mediastinum: No significant findings. Lymph Nodes: No adenopathy in the mediastinum or troy. Skeleton: No acute abnormality. Abdomen and pelvis: Liver: No significant findings. Gallbladder and biliary tree: No significant findings. Spleen: No significant findings. Adrenal Glands: No significant findings. Kidneys and ureters: No significant findings. Stomach and Duodenum: No significant findings. Pancreas: No significant findings. Bowel: No significant findings. Appendix: Normal. Bladder: No significant findings. Major vascular structures: Minimal atherosclerotic calcifications Reproductive organs: No significant findings. 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 IMPRESSION: Left lower lobe pulmonary emboli, as described. No saddle embolism is noted. Trace left pleural effusion and left greater than right bibasilar atelectasis versus pneumonitis. No evidence of primary or metastatic malignancy in the chest, abdomen or pelvis. Signed: Constantino Bonilla MD Report Verified Date/Time: 10/09/2017 00:32:00 Reading Location: [address] Reading Room Performing Organization Address City/State/Zipcode Phone Number GE RIS PSA, total and free (10/07/2017 8:54 AM CDT) PSA, Total 3.8 < OR=4.0 ng/mL [facility] PSA, Free 0.16 ng/mL [facility] PSA, % Free 4 (L) >25 % (calc) [facility] Comment: [facility] Reference Ranges for % Free PSA: Estimated (x) PSA Free PSA Probability of ng/mL % Cancer (as %) 0-2.5 (N/A) Approx. 1 2.6-4.0 (1) 0-27 (2)24 (3) 4.1-10 (4)0-1056 11-15 28 16-20 20 21-25 16 >=26 8 >10 (+) N/A>50 References: (1) Laura et al.: Urology 60: 469-474 (2001) (2) Laura et al.: J Urol 168: 922-925 (2001) Free PSA %Sensitivity (%)Specificity (%) <=2585 19 <=85759 (3) Catalona, et al.: DARIELA 277: 3794-4240 (1996) (4) Catalona, et al.: DARIELA 279: 5747-9390 (1997) (x) These estimates vary with age, ethnicity, family history and ALPA results. (N/A) The diagnostic usefulness of % Free PSA has not been established in patients with total PSA below 2.6 ng/mL. (+) In men with PSA values above 10 ng/mL, prostate cancer risk is determined by total PSA alone. The Total PSA value from this assay system is standardized against the equimolar PSA standard. The test result will be approximately 20% higher when compared to the WHO-standardized Total PSA (Siemens assay). Comparison of serial PSA results should be interpreted with this fact in mind. PSA was performed using the Matthew Byron Immunoassay method. Values obtained from different assay methods cannot be used interchangeably. PSA levels, regardless of value, should not be interpreted as absolute evidence of the presence or absence of disease. Specimen Blood Narrative Performed At Performing Lab [facility] EZ [facility] [address] [place] [address] Darrell Canales MD, PhD Performing Organization Address [facility] Phone Number [place] [address] INCORPORATED [address] [facility] Fibrinogen (10/07/2017 4:58 AM CDT) Fibrinogen 434 225 - 434 mg/dl [facility] Specimen Blood Performing Organization Address [facility] Phone Number [address] [address] [place] Prothrombin Gene Mutation (10/07/2017 4:55 AM CDT) Prothrombin/Factor II Negative for the [id number] [facility] (Prothrombin/Factor II) [facility] mutation. Pathologist: Milind Choudhary MD (electronic [facility] signature) [facility] Specimen Blood Narrative Performed At [facility] This test is a genotyping assay which evaluates the DNA sequence at position 13249 of the prothrombin (Factor II) gene. A region of the prothrombin (Factor II) gene is amplified by polymerase chain reaction followed by fluorescent monitoring of a specific pair of hybridized probes. Since genetic variation and other factors can affect the accuracy of direct mutation testing, these results should be interpreted in light of clinical and familial data. This test was developed and its performance characteristics determined by the [facility] Pathology Department, Section of Molecular Pathology. It has not been cleared or approved by the U.S. Food and Drug Administration (FDA), since FDA approval is not required for clinical use of the test. Validation was done as required by the Clinical Laboratory Improvement Amendments of 1988. Performing Organization Address [facility] Phone Number [address] [address] CENTER Beta-2 glycoprotein antibodies (10/07/2017 4:55 AM CDT) B2 Glcoprotein Ab Profile Refer to individual [facility] B2-Glycoprotein IgG, IgM INCORPORATED and IgA results. Specimen Blood Performing Organization Address City/State/[facility] Phone Number [place] [address] INCORPORATED [address] [facility] Hepatitis C PCR, Quantitative (10/07/2017 4:55 AM CDT) HCV PCR, Quantitative 219,000 (H) <15 IU/mL [facility] Specimen Blood Narrative Performed At This test uses a Real-Time Polymerase Chain [facility] Reaction (RT-PCR) methodology and was performed using RAPHAEL Ampliprep/RAPHAEL TaqMan HCV test kit version 2.0 ([employer]). Reportable range for this assay is 15 - 100,000,000 IU per mL (1.18 - 8.00 Log IU/mL). Performing Organization Address [facility] Phone Number [address] [address] [phone] CENTER Cardiolipin Antibodies, IgG and IgM (10/07/2017 4:55 AM CDT) Anticardiolipin IgG <1.6 GPL [facility] Anticardiolipin IgM 3.7 MPL [facility] Specimen Blood Narrative Performed At Anticardiolipin IgG Result Interpretation: [facility] NEG:<20 GPL;U/ml POS:>/=20 GPL;U/ml Anticardiolipin IgM Result Interpretation: NEG:<20 MPL;U/ml POS:>/=20 MPL;U/ml Performing Organization Address [facility] Phone Number [address] [address] CENTER Factor 5 Leiden PCR (thrombotic risk) (10/07/2017 4:55 AM CDT) Factor V Leiden Positive for one copy of the [facility] R506Q (Factor V Leiden) [facility] mutation Pathologist: Milind Choudhary MD (electronic [facility] signature) [facility]ENTER Specimen Blood Narrative Performed At Factor V Leiden is one of the most common [facility] causes of inherited thrombophilia. The R506Q mutation leads to resistance to degradation of the Factor V Protein by activated Protein C. Individuals who have one copy of the mutation are at a 4-8 fold increased risk of thrombosis and individuals who have two copies are at a 50-100 fold increased risk. In addition, other family members may also be carriers of the mutation and thus have an increased risk for thrombosis. Consider genetic counseling and DNA testing for at-risk family members. The R506Q mutation is detected by amplification of a region of the Factor V Gene by polymerase chain reaction followed by fluorescent monitoring of a specific pair of hybridized probes. Since genetic variation and other factors can affect the accuracy of direct mutation testing, these results should be interpreted in light of clinical and familial data. This test was developed and its performance characteristics determined by the [facility] Pathology Department, Section of Molecular Pathology. It has not been cleared or approved by the U.S. Food and Drug Administration (FDA), since FDA approval is not required for clinical use of the test. Validation was done as required by the Clinical Laboratory Improvement Amendments of 1988. Performing Organization Address City/State/Zipcode Phone Number [address] [phone] [place] PSA (10/07/2017 4:55 AM CDT) PSA 3.7 0.0 - 4.0 ng/mL [facility] Specimen Blood Performing Organization Address City/State/Zipcode Phone Number [address] [phone] CENTER Troponin I (10/07/2017 1:10 AM CDT)Only the most recent of3 resultswithin the time period is included. Troponin I 0.05 (H) 0.00 - 0.03 ng/mL [facility] Specimen Blood Narrative Performed At [facility] Troponin I (TnI) levels must be interpreted in the context of the presenting symptoms and the clinical findings. Elevated TnI levels indicate myocardial damage, but are not specific for ischemic heart disease. Elevated TnI levels are seen in patients with other cardiac conditions (including myocarditis and congestive heart failure), and slight TnI elevations occur in patients with other conditions, including sepsis, renal failure, acidosis, acute neurological disease, and persistent tachyarrhythmia. Performing Organization Address [facility] Phone Number [address] [address] [phone] [place] PERIPHERAL VASCULAR REPORT - SCAN (10/06/2017 5:05 PM CDT) Narrative Performed At HIV-1 Antigen with HIV-1/2 Antibody (10/06/2017 4:12 PM CDT) HIV-1 Antigen with HIV 1&2 NON-REACTIVE Nonreactive [facility] Specimen Blood Performing Organization Address [facility] Phone Number [address] [address] [place] Hepatitis C antibody (10/06/2017 4:12 PM CDT) Hepatitis C Ab Reactive (A) Nonreactive [facility] Specimen Blood Performing Organization Address [facility] Phone Number [address] [address] [phone] [place] Drug screen, urine, comprehensive (10/06/2017 4:08 PM CDT) Specimen Urine Narrative Performed At Performing Organization Address [facility] Phone Number [employer] [address] [place] [address] ECHOCARDIOGRAM REPORT - SCAN (10/06/2017 3:50 PM CDT) Narrative Performed At 2D Echo W/Doppler(CW/PW/Color) (10/06/2017 10:55 AM CDT) Ejection Fraction [facility] Narrative Performed At Transthoracic Echocardiography Report (TTE) [facility] InfectiousCKESSON [facility] Demographics Patient Name ISIDORO HERNANDEZ Date of Study 10/06/2017 [id number] GenderEriche Visit Number [id number] Gerardo [id number] Room Number 6101 Number Date of Birth1965 Referring Physician Javad Gunderson MD Age52 year(s) Locomotive Firer Ga Mckeon MD Physician Fellow MARK Barron Procedure Type of Study TTE procedure:2DECHO W DOPPLER(CW/PW/COLOR) (STAT) Indications:Evaluation of suspected pulmonary hypertension. Clinical History HGB 12.0 HCT 35.7 % SADDLE PULMONARY EMBOLISM Height: 69 inches Weight: 90.72 kg (200 lbs) BSA: 2.07 m^2 BMI: 29.53 kg/m^2 HR: 79 bpm BP: 137/77 mmHg Summary 1. Normal LV size. LV function is mildly reduced. LVEF is 50-54% 2. Diastology: Inconsisitent data. 3. Normal RV size. Depressed RV function. 4. No significant valvular heart disease 5. Trace TR. Unable to estimate PASP. 6. No pericardial effusion Previous Study No prior exam available for comparison. Signature Findings Technical Quality: Technically fair exam. Left Ventricle The left ventricle is chamber size (by vol index) is normal (male - LVED vol - 34-74ml/m2). No evidence of LV hypertrophy. Al l of the LV segments have mildly depressed co ntractility . Gl obal LV systolic is mildly reduced/ LV EF by Barnett's method of disk assessment is mi ldly reduced (50-55%) . Di astology: Inconsistent data. Left AtriumLA size is normal . Right VentricleRV chamber size appears moderately enlarged by li mited views . Gl obal RV systolic function is normal . Right Atrium RA size is normal. Aortic Valve Normal AoV structure and function. Mitral Valve Trace mitral regurgitation Tricuspid ValveA trace of tricuspid regurgitation. Un able to estimate peak systolic PA pressure; in adequate TR velocity signal. Pulmonic Valve PV is not well visualized; function appears normal by Doppler visualized. AortaAortic root size (Sinus of Valsalva diameter) is no rmal . PericardiumNo significant pericardial effusion is visualized. IVC/SVC/PA/PV/PleuralThe estimated RA pressure by IVC dynamics 0-5mmHg . Chambers/Structures Left Atrium LA Volume: 25.36 ml LA Area: 12.85 cm^2 LA Vol. Index: 12 ml/m^2 Left Ventricle LVIDd: 4.07 cm LVIDs: 2.56 cm LV Septum Diastolic: 0.99 cm LV PW Diastolic: 1.19 cmLV FS: 37.1 % LVEDV Barnett's:78.62 ml LVESV Barnett's:35.02 mlLVEDVI: 38 ml/m^2 LVEF Barnett's: 55.5 %LVESV I: 17 ml/m^2 LVOT Diameter: 2.33 cm Doppler/Quantitative Measurements Mitral Valve MV Peak E-Wave: 0.57 m/sMV Peak A-Wave: 0.56 m/s E/A Ratio: 1.02 Peak Gradient: 1.31 mmHg MV Lalit. Peak: Tissue Doppler E' Lateral Velocity: 0.12 m/s E/E': 4.95 Aortic Valve Peak Velocity: 1.22 m/sMean Velocity: 0.8 m/s Peak Gradient: 5.93 mmHg Mean Gradient: 3 mmHg AV Area (continuity): 4.41 cm^2 AV VTI: 20.48 cm AV DVI: 1.03 LVOT Peak Velocity: 1.08 m/s Peak Gradient: 4.65 mmHg Mean Velocity: 0.74 m/s Mean Gradient: 2.54 mmHg LVOT Diameter: 2.33 cmLVOT VTI: 21.18 cm LVOT Area: 4.26 cm^2LVOT SV:90.26 ml LVOT CO: 7.13 l/min LVOT CI: 3.44 l/min/m^2 Procedure Note Interface, External Ris In - 10/06/2017 3:25 PM CDT Transthoracic Echocardiography Report (TTE) Demographics Patient Name ISIDORO HERNANDEZ Date of Study 10/06/2017 Gender Male Visit Number [id number] Race Unknown Room Number 6101 Number Date of 1965 Referring Physician Javad Gunderson MD Age 52 year(s) Locomotive Firer Ga [place]aza Interpreting Piyush Mckeon MD Physician Fellow MARK Barron Procedure Type of Study TTE procedure:2DECHO W DOPPLER(CW/PW/COLOR) (STAT) Indications:Evaluation of suspected pulmonary hypertension. Clinical History HGB 12.0 HCT 35.7 % SADDLE PULMONARY EMBOLISM Height: 69 inches Weight: 90.72 kg (200 lbs) BSA: 2.07 m^2 BMI: 29.53 kg/m^2 HR: 79 bpm BP: 137/77 mmHg Summary 1. Normal LV size. LV function is mildly reduced. LVEF is 50-54% 2. Diastology: Inconsisitent data. 3. Normal RV size. Depressed RV function. 4. No significant valvular heart disease 5. Trace TR. Unable to estimate PASP. 6. No pericardial effusion Previous Study No prior exam available for comparison. Signature Findings Technical Quality: Technically fair exam. Left Ventricle The left ventricle is chamber size (by vol index) is normal (male - LVED vol - 34-74ml/m2). No evidence of LV hypertrophy. All of the LV segments have mildly depressed contractility . Global LV systolic is mildly reduced/ LVEF by Barnett's method of disk assessment is mildly reduced (50-55%) . Diastology: Inconsistent data. Left Atrium LA size is normal . Right Ventricle RV chamber size appears moderately enlarged by limited views . Global RV systolic function is normal . Right Atrium RA size is normal. Aortic Valve Normal AoV structure and function. Mitral Valve Trace mitral regurgitation Tricuspid Valve A trace of tricuspid regurgitation. Unable to estimate peak systolic PA pressure; inadequate TR velocity signal. Pulmonic Valve PV is not well visualized; function appears normal by Doppler visualized. Aorta Aortic root size (Sinus of Valsalva diameter) is normal . Pericardium No significant pericardial effusion is visualized. IVC/SVC/PA/PV/Pleural The estimated RA pressure by IVC dynamics 0-5mmHg . Chambers/Structures Left Atrium LA Volume: 25.36 ml LA Area: 12.85 cm^2 LA Vol. Index: 12 ml/m^2 Left Ventricle LVIDd: 4.07 cm LVIDs: 2.56 cm LV Septum Diastolic: 0.99 cm LV PW Diastolic: 1.19 cm LV FS: 37.1 % LVEDV Barnett's:78.62 ml LVESV Barnett's:35.02 ml LVEDVI: 38 ml/m^2 LVEF Barnett's: 55.5 % LVESVI: 17 ml/m^2 LVOT Diameter: 2.33 cm Doppler/Quantitative Measurements Mitral Valve MV Peak E-Wave: 0.57 m/s MV Peak A-Wave: 0.56 m/s E/A Ratio: 1.02 Peak Gradient: 1.31 mmHg MV Lalit. Peak: Tissue Doppler E' Lateral Velocity: 0.12 m/s E/E': 4.95 Aortic Valve Peak Velocity: 1.22 m/s Mean Velocity: 0.8 m/s Peak Gradient: 5.93 mmHg Mean Gradient: 3 mmHg AV Area (continuity): 4.41 cm^2 AV VTI: 20.48 cm AV DVI: 1.03 LVOT Peak Velocity: 1.08 m/s Peak Gradient: 4.65 mmHg Mean Velocity: 0.74 m/s Mean Gradient: 2.54 mmHg LVOT Diameter: 2.33 cm LVOT VTI: 21.18 cm LVOT Area: 4.26 cm^2 LVOT SV:90.26 ml LVOT CO: 7.13 l/min LVOT CI: 3.44 l/min/m^2 Performing Organization Address City/State/[facility] Phone Number [facility] [employer] ECG 12 lead (10/06/2017 10:34 AM CDT) Narrative Performed At Ventricular Rate 79 BPM GE MUSE Atrial Rate 79 BPM P-R Interval 142 ms QRS Duration 84 ms Q-T Interval 372 ms QTC Calculation(Bazett) 426 ms P Colon 64 degrees R Colon 9 degrees T Colon 17 degrees Normal sinus rhythm Normal ECG No previous ECGs available Confirmed by MD HARRISON JOSEPH P ([id number]) on 10/07/2017 8:23:57 AM Procedure Note Interface, External Ris In - 10/07/2017 8:24 AM CDT Ventricular Rate 79 BPM Atrial Rate 79 BPM P-R Interval 142 ms QRS Duration 84 ms Q-T Interval 372 ms QTC Calculation(Bazett) 426 ms P Colon 64 degrees R Colon 9 degrees T Colon 17 degrees Normal sinus rhythm Normal ECG No previous ECGs available Confirmed by MD HARRISON JOSEPH P ([id number]) on 10/07/2017 8:23:57 AM Performing Organization Address [facility] Phone Number [employer] Venous doppler legs bilateral (10/06/2017 9:30 AM CDT) Ejection Fraction [facility] [employer] CPA Impressions Performed At Right Impression [facility] ZOZI 1. There is no deep venous obstruction in the profunda vein. 2. There is partial echolucent deep venous obstruction in the common femoral and femoral veins. 3. There is total echolucent deep venous obstruction in the popliteal, posterior tibial and peroneal veins. 4. There is partial echolucent superficial venous obstruction in the greater saphenous vein. Left Impression 1. There is partial echolucent deep venous obstruction in the common femoral vein . 2. There is total echolucent deep venous obstruction in the profunda femoral, femoral, popliteal, posterior tibial and peroneal veins. . 3. There is partial echolucent superficial venous obstruction in the greater saphenous vein. Conclusions Summary Venous duplex imaging and compression of the bilateral lower extremities were performed. The veins were adequately visualized. The right deep venous systems were positive with acute thrombus. The right superficial venous system was positive with acute thrombus. The left deep venous system was positive with acute thrombus. The left superficial venous system was positive with acute thrombus. Signature Velocities are measured in cm/s ; Diameters are measured in cm Narrative Performed At [facility] LAB - Lower Extremities DVT Study [facility] Demographics Patient Name ISIDORO HERNANDEZ Date of Study 10/06/2017 [id number] Age 52 Visit Number [id number] GenderMale Accession Number [id number] Date of 1965 [facility] [place] Room Number 6101 PhysicianMillard SonographerCarlin Rey. Julio Lee MD, RVT Physician ALY Lainez RVT Procedure Type of Study: Veins: Lower Extremities DVT Study, VENOUS DOPPLER LEG, BILATERAL. Indications for Study:Bilateral leg swelling and Bilateral leg pain. Patient Status:STAT. Study Location:Portable. Technical Quality:Adequate visualization. - Results were reported to:Marlon@9:25. Risk Factors History of Disease +---------+----+ + !Diagnosis!Date!Comments ! +---------+----+ + !Other!!Prostate Disease, Saddle PE ! +---------+----+ + Procedure Note Interface, External Ris In - 10/06/2017 4:10 PM CDT [facility] - Lower Extremities DVT Study Demographics Patient Name ISIDORO HERNANDEZ Date of Study 10/06/2017 Age 52 Visit Number [id number] Gender Male Accession Number [id number] Date of 1965 Referring Julio Sumner Room Number 6101 Physician Robbin Locomotive Firer Carlin Portillo Interpreting Alyce Lee MD, RVT Physician ALY Lainez RVT Procedure Type of Study: Veins: Lower Extremities DVT Study, VENOUS DOPPLER LEG, BILATERAL. Indications for Study:Bilateral leg swelling and Bilateral leg pain. Patient Status:STAT. Study Location:Portable. Technical Quality:Adequate visualization. - Results were reported to:Marlon@9:25. Risk Factors History of Disease +---------+----+ + !Diagnosis!Date!Comments ! +---------+----+ + !Other ! !Prostate Disease, Saddle PE ! +---------+----+ + Impressions Right Impression 1. There is no deep venous obstruction in the profunda vein. 2. There is partial echolucent deep venous obstruction in the common femoral and femoral veins. 3. There is total echolucent deep venous obstruction in the popliteal, posterior tibial and peroneal veins. 4. There is partial echolucent superficial venous obstruction in the greater saphenous vein. Left Impression 1. There is partial echolucent deep venous obstruction in the common femoral vein . 2. There is total echolucent deep venous obstruction in the profunda femoral, femoral, popliteal, posterior tibial and peroneal veins. . 3. There is partial echolucent superficial venous obstruction in the greater saphenous vein. Conclusions Summary Venous duplex imaging and compression of the bilateral lower extremities were performed. The veins were adequately visualized. The right deep venous systems were positive with acute thrombus. The right superficial venous system was positive with acute thrombus. The left deep venous system was positive with acute thrombus. The left superficial venous system was positive with acute thrombus. Signature Velocities are measured in cm/s ; Diameters are measured in cm Performing Organization Address City/State/Zipcode Phone Number [facility] MKCKESSON CPACS Platelet count (10/06/2017 8:48 AM CDT) Platelets 149 (L) 150 - 450 K/CU MM [facility] Specimen Blood Performing Organization Address City/[facility]/Zipcode Phone Number [facility] [address] [place] [address] CENTER Phosphorus (10/06/2017 8:48 AM CDT) Phosphorus 3.5 2.3 - 4.7 mg/dL [facility] Specimen Blood Performing Organization Address City/State/Zipcode Phone Number [facility] [address] [place] [address] CENTER B-type natriuretic peptide (10/06/2017 8:48 AM CDT) BNP <10 0 - 100 pg/mL [facility] Specimen Blood Performing Organization Address City/State/Zipcode Phone Number [address] [address] [phone] [place] Comprehensive metabolic panel (10/06/2017 8:48 AM CDT) Protein, Total 6.8 6.0 - 8.3 gm/dL [facility] Albumin 3.3 (L) 3.5 - 5.0 g/dL [facility] Alkaline Phosphatase 55 40 - 150 U/L [facility] Total Bilirubin 0.6 0.2 - 1.2 mg/dL [facility] Sodium 137 136 - 145 meq/L [facility] Potassium 3.9 3.5 - 5.1 meq/L [facility] Chloride 103 98 - 107 meq/L [facility] CO2 24 22 - 29 meq/L [facility] BUN 16 7 - 21 mg/dL [facility] Creatinine 0.99 0.57 - 1.25 mg/dL [facility] Glucose 100 70 - 105 mg/dL [facility] Calcium 8.8 8.4 - 10.2 mg/dL [facility] AST 15 5 - 34 U/L [facility] ALT 17 6 - 55 U/L [facility] EGFR Comment: INSUFFICIENT mL/min/1.[address] [facility] CLINICAL DATA TO [facility] CALCULATE ESTIMATED GFR. Specimen Blood Performing Organization Address City/State/Zipcode Phone Number [address] [address] [phone] CENTER after 10/05/2017 Advance Directives For more information, please contact:[address] [phone] Code Status Date Activated Date Inactivated Comments Full Code 10/06/2017 8:22 AM 10/13/2017 4:55 PM This code status was determined by: Patient
--- OUTSIDE RECORDS SUMMARY | 2018-10-06 21:44 | XMS REPORT ---
:1965 [facility] [address] [place] [address] Care Team Providers Name Role Phone DR ANATOLY AMADOR Unavailable Unavailable DR MARGARET REY Unavailable Unavailable LING BULLARD Unavailable Unavailable Problems This patient has no known problems. Allergies, Adverse Reactions, Alerts This patient has no known allergies or adverse reactions. Medications This patient has no known medications. Encounters Start End Encounter Admission Attending Care Care Encounter Date/Time Date/Time Type Type Clinicians Facility Department ID 2018-09-25 2018-09-25 Outpatient Shubham AMADOR [facility] [id number] 10:46:00 12:55:00 ANATOLY 2018-04-03 2018-04-03 Outpatient Shubham AMADOR [facility] [id number] 10:02:00 13:15:00 ANATOLY 2017-12-21 2017-12-21 Outpatient Shubham REY [facility] [id number] 07:31:00 11:15:00 MARGARET Results Test Description Test Time Test Comments Text Results Atomic Results Result Comments BASIC METABOLIC PANEL 2017-10-13 04:42:00 Test Item Value Reference Range Comments SODIUM (BEAKER) (test 139 meq/L 136-145 nvab=974) POTASSIUM (BEAKER) (test 4.3 meq/L 3.5-5.1 wqgz=833) CHLORIDE (BEAKER) (test 105 meq/L 98-107 qixt=998) CO2 (BEAKER) (test ffzk=302) 27 meq/L 22-29 BLOOD UREA NITROGEN (BEAKER) 12 mg/dL 7-21 (test jbdj=338) CREATININE (BEAKER) (test 0.82 mg/dL 0.57-1.25 bakd=611) GLUCOSE RANDOM (BEAKER) 92 mg/dL 70-105 (test eyru=325) CALCIUM (BEAKER) (test 8.4 mg/dL 8.4-10.2 yhhe=003) EGFR (BEAKER) (test mL/min/1.73 sq m INSUFFICIENT CLINICAL DATA TO prvh=2445) CALCULATE ESTIMATED GFR. [id number] 04:26:00 Test Item Value Reference Range Comments MAGNESIUM (BEAKER) (test pbop=033) 2.1 mg/dL 1.6-2.6 [id number] 04:15:00 Test Item Value Reference Range Comments PARTIAL THROMBOPLASTIN TIME (BEAKER) (test 80.3 seconds 22.5-36.0 rdwi=376) CBC (HEMOGRAM ONLY)2017-10-13 04:03:00 Test Item Value Reference Range Comments WHITE BLOOD CELL COUNT (BEAKER) (test gqyt=698) 6.1 K/ L 3.5-10.5 RED BLOOD CELL COUNT (BEAKER) (test ejhp=197) 3.88 M/ L 4.63-6.08 HEMOGLOBIN (BEAKER) (test zkjf=124) 11.2 GM/DL 13.7-17.5 HEMATOCRIT (BEAKER) (test mtqb=662) 34.3 % 40.1-51.0 MEAN CORPUSCULAR VOLUME (BEAKER) (test yzps=980) 88.4 fL 79.0-92.2 MEAN CORPUSCULAR HEMOGLOBIN (BEAKER) (test 28.9 pg 25.7-32.2 dgju=559) MEAN CORPUSCULAR HEMOGLOBIN CONC (BEAKER) (test 32.7 GM/DL 32.3-36.5 vylo=003) RED CELL DISTRIBUTION WIDTH (BEAKER) (test 11.9 % 11.6-14.4 siay=691) PLATELET COUNT (BEAKER) (test wons=806) 196 K/CU MM 150-450 MEAN PLATELET VOLUME (BEAKER) (test otef=770) 10.6 fL 9.4-12.4 NUCLEATED RED BLOOD CELLS (BEAKER) (test 0 /100 WBC 0-0 sgea=601) [id number] 20:53:00 Test Item Value Reference Range Comments PARTIAL THROMBOPLASTIN TIME (BEAKER) (test 60.9 seconds 22.5-36.0 bvni=940) [id number] 13:28:00 Test Item Value Reference Range Comments PARTIAL THROMBOPLASTIN TIME (BEAKER) (test 53.7 seconds 22.5-36.0 kvjf=292) BASIC METABOLIC [id number] 06:31:00 Test Item Value Reference Range Comments SODIUM (BEAKER) (test 139 meq/L 136-145 kprd=588) POTASSIUM (BEAKER) (test 3.9 meq/L 3.5-5.1 skso=643) CHLORIDE (BEAKER) (test 104 meq/L 98-107 sbis=280) CO2 (BEAKER) (test 27 meq/L 22-29 ypxt=023) BLOOD UREA NITROGEN 11 mg/dL 7-21 (BEAKER) (test vhpk=761) CREATININE (BEAKER) (test 1.06 mg/dL 0.57-1.25 heoy=165) GLUCOSE RANDOM (BEAKER) 90 mg/dL 70-105 (test xnbz=976) CALCIUM (BEAKER) (test 8.9 mg/dL 8.4-10.2 istf=701) EGFR (BEAKER) (test mL/min/1.73 sq m INSUFFICIENT CLINICAL DATA wnzl=9591) TO CALCULATE ESTIMATED GFR. [id number] 06:19:00 Test Item Value Reference Range Comments PARTIAL THROMBOPLASTIN TIME (BEAKER) (test 44.4 seconds 22.5-36.0 mspq=403) [id number] 06:16:00 Test Item Value Reference Range Comments MAGNESIUM (BEAKER) (test hawm=890) 2.2 mg/dL 1.6-2.6 CBC (HEMOGRAM ONLY)2017-10-12 06:08:00 Test Item Value Reference Range Comments WHITE BLOOD CELL COUNT (BEAKER) (test qxlh=053) 5.9 K/ L 3.5-10.5 RED BLOOD CELL COUNT (BEAKER) (test zjan=609) 4.10 M/ L 4.63-6.08 HEMOGLOBIN (BEAKER) (test htgw=752) 12.0 GM/DL 13.7-17.5 HEMATOCRIT (BEAKER) (test axgv=245) 36.1 % 40.1-51.0 MEAN CORPUSCULAR VOLUME (BEAKER) (test qsva=075) 88.0 fL 79.0-92.2 MEAN CORPUSCULAR HEMOGLOBIN (BEAKER) (test 29.3 pg 25.7-32.2 hear=713) MEAN CORPUSCULAR HEMOGLOBIN CONC (BEAKER) (test 33.2 GM/DL 32.3-36.5 ovzc=467) RED CELL DISTRIBUTION WIDTH (BEAKER) (test 11.9 % 11.6-14.4 rcmi=139) PLATELET COUNT (BEAKER) (test cgft=643) 188 K/CU MM 150-450 MEAN PLATELET VOLUME (BEAKER) (test gcet=988) 10.0 fL 9.4-12.4 NUCLEATED RED BLOOD CELLS (BEAKER) (test 0 /100 WBC 0-0 ecbr=044) BASIC METABOLIC [id number] 06:05:00 Test Item Value Reference Range Comments SODIUM (BEAKER) (test 136 meq/L 136-145 bysm=443) POTASSIUM (BEAKER) (test 4.2 meq/L 3.5-5.1 glht=622) CHLORIDE (BEAKER) (test 103 meq/L 98-107 ifqo=521) CO2 (BEAKER) (test 23 meq/L 22-29 awqa=943) BLOOD UREA NITROGEN 7 mg/dL 7-21 (BEAKER) (test rvie=632) CREATININE (BEAKER) (test 0.83 mg/dL 0.57-1.25 iekp=538) GLUCOSE RANDOM (BEAKER) 87 mg/dL 70-105 (test crgr=464) CALCIUM (BEAKER) (test 8.3 mg/dL 8.4-10.2 kkwm=139) EGFR (BEAKER) (test mL/min/1.73 sq m INSUFFICIENT CLINICAL DATA aalf=2541) TO CALCULATE ESTIMATED GFR. [id number] 06:04:00 Test Item Value Reference Range Comments MAGNESIUM (BEAKER) (test vsal=357) 1.9 mg/dL 1.6-2.6 [id number] 05:33:00 Test Item Value Reference Range Comments PARTIAL THROMBOPLASTIN TIME (BEAKER) (test 44.6 seconds 22.5-36.0 vfyq=977) Prior to initiating heparinCBC (HEMOGRAM ONLY)2017-10-11 05:11:00 Test Item Value Reference Range Comments WHITE BLOOD CELL COUNT (BEAKER) (test zvfk=140) 5.6 K/ L 3.5-10.5 RED BLOOD CELL COUNT (BEAKER) (test odyj=498) 4.13 M/ L 4.63-6.08 HEMOGLOBIN (BEAKER) (test blom=789) 12.2 GM/DL 13.7-17.5 HEMATOCRIT (BEAKER) (test izpw=790) 36.4 % 40.1-51.0 MEAN CORPUSCULAR VOLUME (BEAKER) (test qrqy=745) 88.1 fL 79.0-92.2 MEAN CORPUSCULAR HEMOGLOBIN (BEAKER) (test 29.5 pg 25.7-32.2 dfav=792) MEAN CORPUSCULAR HEMOGLOBIN CONC (BEAKER) (test 33.5 GM/DL 32.3-36.5 qzhv=971) RED CELL DISTRIBUTION WIDTH (BEAKER) (test 11.9 % 11.6-14.4 yply=927) PLATELET COUNT (BEAKER) (test rslg=407) 194 K/CU MM 150-450 MEAN PLATELET VOLUME (BEAKER) (test mspb=490) 10.1 fL 9.4-12.4 NUCLEATED RED BLOOD CELLS (BEAKER) (test 0 /100 WBC 0-0 ehgg=446) CT, BRAIN, WITHOUT [id number] 01:48:00Pt on EKOS with new right sided headacheFINAL REPORT CT, BRAIN, WITHOUT CONTRAST CLINICAL INDICATION: Stroke COMPARISON: None TECHNIQUE: Noncontrast axial CT imaging of the brain and skull. DOSE REDUCTION: Dose modulation, iterative reconstruction, and/or weight-based adjustment of the mA/kV was utilized to reduce the radiation dose to as low as reasonably achievable. FINDINGS:Cerebral parenchyma: Unremarkable.Midline structures: Normally positioned.Cerebellum and brainstem: Normal.Ventricles: Normal volume.Extra-axial spaces: Unremarkable. Calvarium and skull base: Intact.Paranasal sinuses and mastoid air cells: Visible chambers are clear.Orbital contents: Included portions unremarkable. Additional findings: None. IMPRESSION: No acute intracranial abnormality. If there is persistent clinical concern for intracranial pathology, MR examination is recommended for further characterization. Signed: JR Abebe Robert MDReport Verified Date/Time: 10/11/2017 01:48:25 Reading Location: [address] Reading Room FACTOR 5 LEIDEN PCR (THROMBOTIC RISK) 16:20:00 Test Item Value Reference Range Comments FACTOR V LEIDEN (LULÚ) Positive for one copy of the (test juji=308) R506Q (Factor V Leiden) mutation [id number] ([facility]) Milind Choudhary MD (electronic (test tqfo=3943) signature) Factor V Leiden is one of the most common causes of inherited thrombophilia. The R506Q mutation leads to resistance to degradation of the Factor V Protein by activated Protein C. Individuals who have one copy of the mutation are at a 4 -8 fold increased risk of thrombosis and individuals who have two copies are at a 50-100 fold increased risk. In addition, other family members may also be carriers of the mutation and thus have an increased risk for thrombosis. Consider genetic counseling and DNA testing for at-risk family members.The R506Q mutation is detected by amplification of a region of the Factor V Gene by polymerase chain reaction followed by fluorescent monitoring of a specific pair of hybridized probes. Since genetic variation and other factors can affect the accuracy of direct mutation testing, these results should be interpreted in light of clinical and familial data.This test was developed and its performance characteristics determined by the [facility] Pathology Department, Section of Molecular Pathology. It has not been cleared or approved by the U.S. Food and Drug Administration (FDA), since FDA approval is not required for clinical use of the test. Validationwas done as required by the Clinical Laboratory Improvement Amendments of 1988.PROTHROMBIN GENE [id number] 16:16:00 Test Item Value Reference Range Comments PROTHROMBIN/FACTOR II Negative for the [id number] (LULÚ) (test kjxe=2485) (Prothrombin/Factor II) mutation. [id number](LULÚ Choudhary MD (electronic ) (test vfpk=7110) signature) This test is a genotyping assay which evaluates the DNA sequence at position 93350 of the prothrombin (Factor II) gene. A region of the prothrombin (Factor II) gene is amplified by polymerase chain reaction followed by fluorescent monitoring of a specific pair of hybridized probes. Since genetic variation and other factors can affect the accuracy of direct mutation testing, these results should be interpreted in light of clinical and familial data.This test was developed and its performance characteristics determined by the [facility] Pathology Department, Section of Molecular Pathology. It has not been cleared or approved by the U.S. Food and Drug Administration (FDA), since FDA approval is not required for clinical use of the test. Validation was done as required by the Clinical Laboratory Improvement Amendments of 1988.[id number] 08:19:00 Test Item Value Reference Range Comments PARTIAL THROMBOPLASTIN TIME (BEAKER) (test 35.6 seconds 22.5-36.0 bdpz=835) [id number] 05:51:00 Test Item Value Reference Range Comments PARTIAL THROMBOPLASTIN TIME (BEAKER) (test 117.0 seconds 22.5-36.0 ocyr=537) [id number] 05:14:00 Test Item Value Reference Range Comments MAGNESIUM (BEAKER) (test 2.4 mg/dL 1.6-2.6 Specimen slightly hemolyzed skmz=947) BASIC METABOLIC [id number] 05:14:00 Test Item Value Reference Range Comments SODIUM (BEAKER) (test 135 meq/L 136-145 nywh=821) POTASSIUM (BEAKER) (test 4.7 meq/L 3.5-5.1 Specimen slightly fboy=626) hemolyzed CHLORIDE (BEAKER) (test 101 meq/L 98-107 nmck=602) CO2 (BEAKER) (test 25 meq/L 22-29 vrfs=976) BLOOD UREA NITROGEN 10 mg/dL 7-21 (BEAKER) (test eksu=768) CREATININE (BEAKER) (test 0.79 mg/dL 0.57-1.25 Specimen slightly qxzq=076) hemolyzed GLUCOSE RANDOM (BEAKER) 101 mg/dL 70-105 (test wxer=158) CALCIUM (BEAKER) (test 9.0 mg/dL 8.4-10.2 cgmu=029) EGFR (BEAKER) (test mL/min/1.73 sq m INSUFFICIENT CLINICAL DATA wytl=7705) TO CALCULATE ESTIMATED GFR. PROTHROMBIN [id number] 05:12:00 Test Item Value Reference Range Comments PROTIME (BEAKER) (test edpr=943) 15.0 seconds 11.7-14.7 INR (BEAKER) (test eaww=999) 1.2 <=5.9 RECOMMENDED COUMADIN/WARFARIN INR THERAPY RANGESSTANDARD DOSE: 2.0 - 3.0 Includes: PROPHYLAXIS forvenous thrombosis, systemic embolization; TREATMENT for venous thrombosis and/or pulmonary embolus.HIGH RISK: Target INR is 2.5-3.5 for patients with mechanical heart valves.CBC (HEMOGRAM ONLY)2017-10-10 04:50:00 Test Item Value Reference Range Comments WHITE BLOOD CELL COUNT (BEAKER) (test vrdh=228) 6.2 K/ L 3.5-10.5 RED BLOOD CELL COUNT (BEAKER) (test stxy=593) 4.41 M/ L 4.63-6.08 HEMOGLOBIN (BEAKER) (test tbdb=090) 12.9 GM/DL 13.7-17.5 HEMATOCRIT (BEAKER) (test nqrn=726) 38.8 % 40.1-51.0 MEAN CORPUSCULAR VOLUME (BEAKER) (test zorl=765) 88.0 fL 79.0-92.2 MEAN CORPUSCULAR HEMOGLOBIN (BEAKER) (test 29.3 pg 25.7-32.2 uthv=978) MEAN CORPUSCULAR HEMOGLOBIN CONC (BEAKER) (test 33.2 GM/DL 32.3-36.5 npjb=394) RED CELL DISTRIBUTION WIDTH (BEAKER) (test 11.8 % 11.6-14.4 adkw=449) PLATELET COUNT (BEAKER) (test ayom=784) 220 K/CU MM 150-450 MEAN PLATELET VOLUME (BEAKER) (test fhfz=367) 10.2 fL 9.4-12.4 NUCLEATED RED BLOOD CELLS (BEAKER) (test 0 /100 WBC 0-0 ntlt=753) [id number] 17:20:00 Test Item Value Reference Range Comments PARTIAL THROMBOPLASTIN TIME (BEAKER) (test 66.6 seconds 22.5-36.0 zbiv=059) CARDIOLIPIN ANTIBODIES, IGG AND [id number] 10:47:00 Test Item Value Reference Range Comments ANTICARDIOLIPIN IGG ANTIBODY (BEAKER) (test < GPL udvr=959) ANTICARDIOLIPIN IGM ANTIBODY (BEAKER) (test 3.7 MPL ouur=956) Anticardiolipin IgG Result Interpretation:NEG: <20 GPL; U/mlPOS: >/=20 GPL; U/mlAnticardiolipin IgM Result Interpretation:NEG: <20 MPL; U/mlPOS: >/=20 MPL; [id number] 10:42:00 Test Item Value Reference Range Comments PARTIAL THROMBOPLASTIN TIME (BEAKER) (test 80.5 seconds 22.5-36.0 ayoe=715) BASIC METABOLIC [id number] 01:13:00 Test Item Value Reference Range Comments SODIUM (BEAKER) (test 130 meq/L 136-145 vfoo=169) POTASSIUM (BEAKER) (test 4.1 meq/L 3.5-5.1 dlsd=490) CHLORIDE (BEAKER) (test 98 meq/L 98-107 edwi=897) CO2 (BEAKER) (test 25 meq/L 22-29 rxtr=534) BLOOD UREA NITROGEN 8 mg/dL 7-21 (BEAKER) (test rojf=113) CREATININE (BEAKER) (test 0.78 mg/dL 0.57-1.25 cdyp=780) GLUCOSE RANDOM (BEAKER) 101 mg/dL 70-105 (test owok=339) CALCIUM (BEAKER) (test 8.6 mg/dL 8.4-10.2 mvgr=156) EGFR (BEAKER) (test mL/min/1.73 sq m INSUFFICIENT CLINICAL DATA csxh=5731) TO CALCULATE ESTIMATED GFR. [id number] 01:11:00 Test Item Value Reference Range Comments PARTIAL THROMBOPLASTIN TIME (BEAKER) (test 40.8 seconds 22.5-36.0 urcw=759) [id number] 01:08:00 Test Item Value Reference Range Comments MAGNESIUM (BEAKER) (test ksjs=713) 2.2 mg/dL 1.6-2.6 CBC W/PLT COUNT & AUTO [id number] 00:52:00 Test Item Value Reference Range Comments WHITE BLOOD CELL COUNT (BEAKER) (test gkoh=375) 6.9 K/ L 3.5-10.5 RED BLOOD CELL COUNT (BEAKER) (test sjnk=455) 4.13 M/ L 4.63-6.08 HEMOGLOBIN (BEAKER) (test fjcy=212) 12.0 GM/DL 13.7-17.5 HEMATOCRIT (BEAKER) (test aupc=083) 35.1 % 40.1-51.0 MEAN CORPUSCULAR VOLUME (BEAKER) (test yjxv=584) 85.0 fL 79.0-92.2 MEAN CORPUSCULAR HEMOGLOBIN (BEAKER) (test 29.1 pg 25.7-32.2 zhfm=187) MEAN CORPUSCULAR HEMOGLOBIN CONC (BEAKER) (test 34.2 GM/DL 32.3-36.5 oyba=797) RED CELL DISTRIBUTION WIDTH (BEAKER) (test 11.5 % 11.6-14.4 ypwy=082) PLATELET COUNT (BEAKER) (test kwip=100) 178 K/CU MM 150-450 MEAN PLATELET VOLUME (BEAKER) (test ejyg=643) 10.4 fL 9.4-12.4 NUCLEATED RED BLOOD CELLS (BEAKER) (test 0 /100 WBC 0-0 cvwg=255) NEUTROPHILS RELATIVE PERCENT (BEAKER) (test 61 % jpfi=984) LYMPHOCYTES RELATIVE PERCENT (BEAKER) (test 21 % xpzp=681) MONOCYTES RELATIVE PERCENT (BEAKER) (test 13 % hggj=450) EOSINOPHILS RELATIVE PERCENT (BEAKER) (test 4 % ebfy=550) BASOPHILS RELATIVE PERCENT (BEAKER) (test 1 % tmty=111) NEUTROPHILS ABSOLUTE COUNT (BEAKER) (test 4.20 K/ L 1.78-5.38 dajx=049) LYMPHOCYTES ABSOLUTE COUNT (BEAKER) (test 1.44 K/ L 1.32-3.57 qgpw=990) MONOCYTES ABSOLUTE COUNT (BEAKER) (test 0.89 K/ L 0.30-0.82 ytpa=348) EOSINOPHILS ABSOLUTE COUNT (BEAKER) (test 0.27 K/ L 0.04-0.54 wlnx=559) BASOPHILS ABSOLUTE COUNT (BEAKER) (test 0.04 K/ L 0.01-0.08 pdld=466) IMMATURE GRANULOCYTES-RELATIVE PERCENT (BEAKER) 1 % 0-1 (test jwkg=5575) CT, CHEST WITH IV CONTRAST- PE TEST [id number] 00:32:00FINAL REPORT CLINICAL HISTORY: Saddle pulmonary embolism diagnosed at an outside facility, status post catheter guided thrombolysis. Concern for underlying malignancy. FINDINGS:Multiple axial images of the chest, abdomen and [...] Bilateral L5 pars defects with grade 1-2 anterolisthesisof L5 on S1 and associated degenerative change. IMPRESSION: Left lower lobe pulmonary emboli, as described. No saddle embolism is noted. Trace left pleural effusion and left greater than right bibasilar atelectasis versus pneumonitis. No evidence of primary or metastatic malignancy in the chest, abdomen or pelvis. Signed: Constantino Bentley MDReport Verified Date/Time: 10/09/2017 00:32:00 Reading Location: [address] Reading Room [facility] [place] [id number] 00:32:00FINAL REPORT CLINICAL HISTORY: Saddle pulmonary embolism diagnosed at an outside facility, status post catheter guided thrombolysis. Concern for underlying malignancy. FINDINGS:Multiple axial images of the chest, abdomen and pelvis were performed after the uncomplicated administration of IV contrast, utilizing a pulmonary embolism protocol for the chest portion. Post- processing coronal reformats of the chest were created and interpreted. Oral contrast was given. This exam was performed according to our departmental dose- optimization program, which includes automated exposure control, adjustment [...] Bilateral L5 pars defects with grade 1-2 anterolisthesisof L5 on S1 and associated degenerative change. IMPRESSION: Left lower lobe pulmonary emboli, as described. No saddle embolism is noted. Trace left pleural effusion and left greater than right bibasilar atelectasis versus pneumonitis. No evidence of primary or metastatic malignancy in the chest, abdomen or pelvis. Signed: Constantino Bentley MDReport Verified Date/Time: 10/09/2017 00:32:00 Reading Location : [address] Reading Room HEPATITIS C PCR, [id number] 20: 09:00 Test Item Value Reference Range Comments HCV NUMERIC RESULT (LULÚ) (test yjle=0625) [id number] IU/mL <15 This test uses a Real-Time Polymerase Chain Reaction (RT-PCR) methodology and was performed using RAPHAEL Ampliprep/RAPHAEL TaqMan HCV test kit version 2.0 ( [employer]).Reportable range for this assay is 15 - 100,000, 000 IU per mL (1.18 - 8.00 Log IU/mL).[id number] 15:02:00 Test Item Value Reference Range Comments PARTIAL THROMBOPLASTIN TIME (BEAKER) (test 37.7 seconds 22.5-36.0 iwkq=102) [id number] 07:49:00 Test Item Value Reference Range Comments PARTIAL THROMBOPLASTIN TIME (BEAKER) (test 24.8 seconds 22.5-36.0 acmr=895) [id number] 05:41:00 Test Item Value Reference Range Comments MAGNESIUM (BEAKER) (test iyvo=510) 2.1 mg/dL 1.6-2.6 BASIC METABOLIC [id number] 05:41:00 Test Item Value Reference Range Comments SODIUM (BEAKER) (test 135 meq/L 136-145 cdys=278) POTASSIUM (BEAKER) (test 3.7 meq/L 3.5-5.1 wdyx=381) CHLORIDE (BEAKER) (test 102 meq/L 98-107 hioi=527) CO2 (BEAKER) (test 28 meq/L 22-29 yygl=739) BLOOD UREA NITROGEN 7 mg/dL 7-21 (BEAKER) (test ovcz=414) CREATININE (BEAKER) (test 0.76 mg/dL 0.57-1.25 mbfk=543) GLUCOSE RANDOM (BEAKER) 108 mg/dL 70-105 (test ouzt=776) CALCIUM (BEAKER) (test 8.3 mg/dL 8.4-10.2 ipyq=598) EGFR (BEAKER) (test mL/min/1.73 sq m INSUFFICIENT CLINICAL DATA hfjg=2037) TO CALCULATE ESTIMATED GFR. CBC (HEMOGRAM ONLY)2017-10-08 05:23:00 Test Item Value Reference Range Comments WHITE BLOOD CELL COUNT (BEAKER) (test nxak=288) 7.5 K/ L 3.5-10.5 RED BLOOD CELL COUNT (BEAKER) (test fzjn=223) 4.37 M/ L 4.63-6.08 HEMOGLOBIN (BEAKER) (test ubmm=805) 12.8 GM/DL 13.7-17.5 HEMATOCRIT (BEAKER) (test lpkb=243) 38.0 % 40.1-51.0 MEAN CORPUSCULAR VOLUME (BEAKER) (test gint=936) 87.0 fL 79.0-92.2 MEAN CORPUSCULAR HEMOGLOBIN (BEAKER) (test 29.3 pg 25.7-32.2 kwba=901) MEAN CORPUSCULAR HEMOGLOBIN CONC (BEAKER) (test 33.7 GM/DL 32.3-36.5 nxag=769) RED CELL DISTRIBUTION WIDTH (BEAKER) (test 11.6 % 11.6-14.4 gwrj=262) PLATELET COUNT (BEAKER) (test zbbz=764) 154 K/CU MM 150-450 MEAN PLATELET VOLUME (BEAKER) (test jreu=528) 10.0 fL 9.4-12.4 NUCLEATED RED BLOOD CELLS (BEAKER) (test 0 /100 WBC 0-0 kuub=914) [id number] 02:45:00 Test Item Value Reference Range Comments PARTIAL THROMBOPLASTIN TIME (BEAKER) (test 29.4 seconds 22.5-36.0 phpo=628) CBC (HEMOGRAM ONLY)2017-10-07 11:51:00 Test Item Value Reference Range Comments WHITE BLOOD CELL COUNT (BEAKER) (test nwnp=067) 7.6 K/ L 3.5-10.5 RED BLOOD CELL COUNT (BEAKER) (test iwls=165) 3.95 M/ L 4.63-6.08 HEMOGLOBIN (BEAKER) (test eynz=000) 11.5 GM/DL 13.7-17.5 HEMATOCRIT (BEAKER) (test xktx=952) 35.0 % 40.1-51.0 MEAN CORPUSCULAR VOLUME (BEAKER) (test hhdw=567) 88.6 fL 79.0-92.2 MEAN CORPUSCULAR HEMOGLOBIN (BEAKER) (test 29.1 pg 25.7-32.2 hrzz=148) MEAN CORPUSCULAR HEMOGLOBIN CONC (BEAKER) (test 32.9 GM/DL 32.3-36.5 ivfq=142) RED CELL DISTRIBUTION WIDTH (BEAKER) (test 11.7 % 11.6-14.4 jcry=275) PLATELET COUNT (BEAKER) (test ljdb=802) 141 K/CU MM 150-450 MEAN PLATELET VOLUME (BEAKER) (test vend=824) 9.9 fL 9.4-12.4 NUCLEATED RED BLOOD CELLS (BEAKER) (test 0 /100 WBC 0-0 oeel=038) [id number] 05:53:00 Test Item Value Reference Range Comments PROSTATE SPECIFIC ANTIGEN (BEAKER) (test ylzq=268) 3.7 ng/mL 0.0-4.0 BASIC METABOLIC [id number] 05:42:00 Test Item Value Reference Range Comments SODIUM (BEAKER) (test 132 meq/L 136-145 ewcb=180) POTASSIUM (BEAKER) (test 4.3 meq/L 3.5-5.1 tlpm=623) CHLORIDE (BEAKER) (test 100 meq/L 98-107 enpd=818) CO2 (BEAKER) (test 26 meq/L 22-29 ggix=578) BLOOD UREA NITROGEN 13 mg/dL 7-21 (BEAKER) (test fwhb=825) CREATININE (BEAKER) (test 0.97 mg/dL 0.57-1.25 rcab=031) GLUCOSE RANDOM (BEAKER) 100 mg/dL 70-105 (test onfa=112) CALCIUM (BEAKER) (test 8.3 mg/dL 8.4-10.2 aaka=469) EGFR (BEAKER) (test mL/min/1.73 sq m INSUFFICIENT CLINICAL DATA alof=2984) TO CALCULATE ESTIMATED GFR. [id number] 05:40:00 Test Item Value Reference Range Comments MAGNESIUM (BEAKER) (test mfoq=830) 1.9 mg/dL 1.6-2.6 [id number] 05:39:00 Test Item Value Reference Range Comments PARTIAL THROMBOPLASTIN TIME (BEAKER) (test 39.1 seconds 22.5-36.0 pnco=408) [id number] 05:38:00 Test Item Value Reference Range Comments FIBRINOGEN LEVEL (BEAKER) (test ntfc=888) 434 mg/dl 225-434 TROPONIN [id number] 01:40:00 Test Item Value Reference Range Comments TROPONIN I (BEAKER) (test blus=322) 0.05 ng/mL 0.00-0.03 Troponin I (TnI) levels must be interpreted [...] failure, acidosis, acute neurological disease, and persistent tachyarrhythmia.HEPATITIS C [id number] 17:24:00 Test Item Value Reference Range Comments HEPATITIS C ANTIBODY (BEAKER) (test maqd=045) Reactive Nonreactive HIV-1 ANTIGEN WITH HIV-1/2 [id number] 17:06:00 Test Item Value Reference Range Comments HIV-1 ANTIGEN WITH HIV 1\T\2 ANTIBODY (2) Nonreactive Nonreactive (BEAKER) (test ksgq=6680) TROPONIN [id number] 16:43:00 Test Item Value Reference Range Comments TROPONIN I (BEAKER) (test afez=213) 0.11 ng/mL 0.00-0.03 Troponin I (TnI) levels must be interpreted [...] failure, acidosis, acute neurological disease, and persistent tachyarrhythmia.COMPREHENSIVE METABOLIC [id number] 09:33:00 Test Item Value Reference Range Comments TOTAL PROTEIN (BEAKER) 6.8 gm/dL 6.0-8.3 (test sghh=685) ALBUMIN (BEAKER) (test 3.3 g/dL 3.5-5.0 wzgs=0105) ALKALINE PHOSPHATASE 55 U/L 40-150 (BEAKER) (test semv=746) BILIRUBIN TOTAL (BEAKER) 0.6 mg/dL 0.2-1.2 (test xyju=471) SODIUM (BEAKER) (test 137 meq/L 136-145 fjoj=640) POTASSIUM (BEAKER) (test 3.9 meq/L 3.5-5.1 wfuf=829) CHLORIDE (BEAKER) (test 103 meq/L 98-107 pscv=760) CO2 (BEAKER) (test 24 meq/L 22-29 spmg=074) BLOOD UREA NITROGEN 16 mg/dL 7-21 (BEAKER) (test hwzh=778) CREATININE (BEAKER) (test 0.99 mg/dL 0.57-1.25 nump=492) GLUCOSE RANDOM (BEAKER) 100 mg/dL 70-105 (test dbrg=471) CALCIUM (BEAKER) (test 8.8 mg/dL 8.4-10.2 pyhm=132) AST (SGOT) (BEAKER) (test 15 U/L 5-34 scye=522) ALT (SGPT) (BEAKER) (test 17 U/L 6-55 ykar=010) EGFR (BEAKER) (test mL/min/1.73 sq m INSUFFICIENT CLINICAL DATA vhqc=5284) TO CALCULATE ESTIMATED GFR. B-TYPE NATRIURETIC FACTOR (BNP)2017-10-06 09:33:00 Test Item Value Reference Range Comments B-TYPE NATRIURETIC PEPTIDE (BEAKER) (test jjsj=915) < pg/mL 0-100 TROPONIN [id number] 09:25:00 Test Item Value Reference Range Comments TROPONIN I (BEAKER) (test kvpu=147) < ng/mL 0.00-0.03 Troponin I (TnI) levels must be interpreted [...] failure, acidosis, acute neurological disease, and persistent tachyarrhythmia.[id number] 09:22:00 Test Item Value Reference Range Comments PARTIAL THROMBOPLASTIN TIME (BEAKER) (test 40.1 seconds 22.5-36.0 sqak=850) [id number] 09:19:00 Test Item Value Reference Range Comments PHOSPHORUS (BEAKER) (test fyhf=518) 3.5 mg/dL 2.3-4.7 [id number] 09:19:00 Test Item Value Reference Range Comments MAGNESIUM (BEAKER) (test hirt=892) 2.1 mg/dL 1.6-2.6 PROTHROMBIN TIME/[id number] 09:15:00 Test Item Value Reference Range Comments PROTIME (BEAKER) (test pegx=531) 15.3 seconds 11.7-14.7 INR (BEAKER) (test ehct=010) 1.2 <=5.9 RECOMMENDED COUMADIN/WARFARIN INR THERAPY RANGESSTANDARD DOSE: 2.0 - 3.0 Includes: PROPHYLAXIS forvenous thrombosis, systemic embolization; TREATMENT for venous thrombosis and/or pulmonary embolus.HIGH RISK: Target INR is 2.5-3.5 for patients with mechanical heart valves.PLATELET [id number] 08:58:00 Test Item Value Reference Range Comments PLATELET COUNT (BEAKER) (test bcaa=499) 149 K/CU MM 150-450 CBC W/PLT COUNT & AUTO [id number] 08:58:00 Test Item Value Reference Range Comments WHITE BLOOD CELL COUNT (BEAKER) (test hmha=414) 11.7 K/ L 3.5-10.5 RED BLOOD CELL COUNT (BEAKER) (test fsyd=718) 4.03 M/ L 4.63-6.08 HEMOGLOBIN (BEAKER) (test rdiv=195) 12.0 GM/DL 13.7-17.5 HEMATOCRIT (BEAKER) (test apjc=678) 35.7 % 40.1-51.0 MEAN CORPUSCULAR VOLUME (BEAKER) (test yyve=632) 88.6 fL 79.0-92.2 MEAN CORPUSCULAR HEMOGLOBIN (BEAKER) (test 29.8 pg 25.7-32.2 jmfo=860) MEAN CORPUSCULAR HEMOGLOBIN CONC (BEAKER) (test 33.6 GM/DL 32.3-36.5 uzrm=996) RED CELL DISTRIBUTION WIDTH (BEAKER) (test 11.9 % 11.6-14.4 sgcm=481) PLATELET COUNT (BEAKER) (test zkza=397) 149 K/CU MM 150-450 MEAN PLATELET VOLUME (BEAKER) (test uvft=458) 10.1 fL 9.4-12.4 NUCLEATED RED BLOOD CELLS (BEAKER) (test 0 /100 WBC 0-0 wovd=709) NEUTROPHILS RELATIVE PERCENT (BEAKER) (test 61 % ucch=828) LYMPHOCYTES RELATIVE PERCENT (BEAKER) (test 25 % mxuc=766) MONOCYTES RELATIVE PERCENT (BEAKER) (test 11 % yxmq=221) EOSINOPHILS RELATIVE PERCENT (BEAKER) (test 3 % pscx=334) BASOPHILS RELATIVE PERCENT (BEAKER) (test 0 % woud=549) NEUTROPHILS ABSOLUTE COUNT (BEAKER) (test 7.05 K/ L 1.78-5.38 sodh=924) LYMPHOCYTES ABSOLUTE COUNT (BEAKER) (test 2.89 K/ L 1.32-3.57 cegt=794) MONOCYTES ABSOLUTE COUNT (BEAKER) (test 1.26 K/ L 0.30-0.82 kkwx=526) EOSINOPHILS ABSOLUTE COUNT (BEAKER) (test 0.29 K/ L 0.04-0.54 uqhh=715) BASOPHILS ABSOLUTE COUNT (BEAKER) (test 0.05 K/ L 0.01-0.08 hafa=506) IMMATURE GRANULOCYTES-RELATIVE PERCENT (BEAKER) 1 % 0-1 (test nxaz=5117)
[2018-10-06] MEDS ORDERED: MORPHINE 4 MG/ML SYR ONE (22:47)
[2018-10-06] MEDS ORDERED: ONDANSETRON 4 MG/2 ML VIAL ONE (22:49)
[2018-10-06] MEDS ORDERED: FENTANYL CITR 100 MCG/2 ML ONE (23:12)
[2018-10-06] MEDS ORDERED: NA CHLORIDE 0.9% 1,000 ML ONE (23:12)
[2018-10-06 23:18] LABS: Absolute Lymphocytes (CBC) 2.1 K/uL (0.7-4.9); Absolute Monocytes 0.7 K/uL (0.1-1.3); Absolute Neutrophil 2.6 K/uL (1.8-8.0); Basophils % 1.1 % (0-1.3); Hematocrit 36.4 % (39.6-49.0); Lymphocytes % 36.8 % (15.3-44.8); MPV 9.4 fL (7.6-11.3); Monocytes % 12.8 % (3.3-12.3); RBC Red Blood Cell Count 4.02 M/uL (4.33-5.43)
[2018-10-06 23:22] LABS: Protime INR 0.98
[2018-10-06 23:40] LABS: ALT/SGPT 48 U/L (12-78); AST/SGOT 80 U/L (15-37); Albumin 3.3 g/dL (3.4-5.0); Alkaline Phosphatase 50 U/L (45-117); BUN Blood Urea Nitrogen 19 mg/dL (7-18); Bicarbonate 29 mmol/L (21-32); Bilirubin Direct < 0.1 mg/dL (0-0.2); Bilirubin Total 0.2 mg/dL (0.2-1.0); Glucose Level 102 mg/dL (74-106); Magnesium 2.1 mg/dL (1.8-2.4); NT PRO-BNP 91 pg/mL (<125); Potassium 3.9 mmol/L (3.5-5.1); Protein, Total 6.1 g/dL (6.4-8.2); Sodium Level 144 mmol/L (136-145); Troponin (Emerg Dept Use Only) < 0.02 ng/mL (0.0-0.045)
--- NOTE | 2018-10-07 00:17 | EDPHYS ---
Physician Documentation [facility] Name: Justin Khan Age: 53 yrs Sex: Male : 1965 Arrival Date: 10/06/2018 Time: 21:47 Bed 5 Private MD: ED Physician Suhas Rosario HPI: 10/06 22:11 This 53 yrs old Male presents to ER via Wheelchair with complaints of Leg Pain.cp 22:11 The patient presents with pain, that is acute, swelling, tenderness. The complaints cp affect the left calf. 22:12 Onset: The symptoms/episode began/occurred few days ago. Patient reports history of cp left leg DVT and multiple pulmonary emboli diagnosed September 2017 in this ED. Patient reports he is prescribed Eliquis but does not take medication daily due to cost of medication. Patient unsure what caused DVT and pulmonary emboli in the past. Historical: - Allergies: 21:52 PENICILLINS; la1 - PMHx: 21:52 enlarged prostate; DVT and PE; la1 - PSHx: 10/07 01:38 Knee surgery; ak1 - Immunization history:: Adult Immunizations up to date. - Social history:: Smoking status: Patient/guardian denies using tobacco. - Ebola Screening: : No symptoms or risks identified at this time. ROS: 10/06 22:15 Constitutional: Negative for body aches, chills, fever, poor PO intake. cp 22:15 Eyes: Negative for injury, pain, redness, and discharge. cp 22:15 ENT: Negative for drainage from ear(s), ear pain, sore throat, difficulty swallowing, difficulty handling secretions. 22:15 Cardiovascular: Negative for chest pain, palpitations. 22:15 Respiratory: Negative for cough, shortness of breath, wheezing. 22:15 Abdomen/GI: Negative for abdominal pain, nausea, vomiting, and diarrhea, black/tarry stool, rectal bleeding. 22:15 Back: Negative for pain at rest, pain with movement, radiated pain. 22:15 MS/extremity: Positive for pain, swelling, tenderness, of the left leg, Negative for injury or acute deformity, decreased range of motion, paresthesias. 22:15 Skin: Negative for cellulitis, rash. 22:15 Neuro: Negative for altered mental status, dizziness, headache, syncope, weakness. 22:15 All other systems are negative. Exam: 22:20 Constitutional: The patient appears in no acute distress, alert, awake, cp non-diaphoretic, non-toxic, well developed, well nourished, uncomfortable. 22:20 Head/Face: Normocephalic, atraumatic. cp 22:20 Eyes: Periorbital structures: appear normal, Conjunctiva: normal, no exudate, no injection, Sclera: no appreciated abnormality, Lids and lashes: appear normal, bilaterally. 22:20 ENT: External ear(s): are unremarkable, Nose: is normal, Mouth: Lips: moist, Oral mucosa: moist, Posterior pharynx: is normal, airway is patent. 22:20 Chest/axilla: Inspection: normal, Palpation: is normal, no crepitus, no tenderness. 22:20 Cardiovascular: Rate: normal, Rhythm: regular, JVD: is not appreciated. 22:20 Respiratory: the patient does not display signs of respiratory distress, Respirations: normal, no use of accessory muscles, no retractions, no splinting, no tachypnea, labored breathing, is not present, Breath sounds: are clear throughout, no decreased breath sounds, no stridor, no wheezing. 22:20 Abdomen/GI: Inspection: abdomen appears normal, Palpation: abdomen is soft and non-tender, in all quadrants. 22:20 Musculoskeletal/extremity: DVT Exam: no erythema, no increased warmth, pain, that is marked, of the left leg, swelling, that is mild, of the left leg, tenderness, that is marked, of the right leg, of the left leg, positive Homans' sign noted on exam, Calves: have palpable cords, on left. 22:20 Skin: cellulitis, is not appreciated, no rash present. 22:20 Neuro: Orientation: to person, place \T\ time. Mentation: is normal, Cerebellar function: is grossly normal, Motor: moves all fours, strength is normal, Sensation: is normal. 23:05 ECG was reviewed by the Attending Physician. cp Vital Signs: 21:53 Pulse 65; Resp 18; Temp 98.2; Pulse Ox 98% on R/A; Weight 90.72 kg; Height 5 ft. 9 in. la1 (175.26 cm); Pain 10/10; 21:54 BP 119 / 78; la1 22:49 BP 117 / 80; Pulse 69; Resp 16 S; Pulse Ox 98% on R/A; jd3 23:48 BP 106 / 67; Pulse 62; Resp 14; Temp 98.2; Pulse Ox 98% on R/A; ak1 10/07 00:00 BP 118 / 77; Pulse 60; Resp 14; Pulse Ox 98% on R/A; ak1 01:05 BP 118 / 74; Pulse 77; Resp 18; Temp 98.2; Pulse Ox 99% on R/A; ak1 02:09 BP 116 / 83; Pulse 61; Resp 14; Pulse Ox 98% on R/A; ak1 10/06 21:53 Body Mass Index 29.53 (90.72 kg, 175.26 cm) la1 MDM: 10/06 22:06 Patient medically screened. cp 23:00 Differential diagnosis: tendonitis, cellulitis, strain, DVT, pulmonary embolism. cp 10/07 00:14 Physician consultation: Dwight Kaiser MD was called at 00:14, was contacted at 00:14, cp regarding admission, to the telemetry unit. patient's condition. 00:15 Data reviewed: vital signs, nurses notes, lab test result(s), radiologic studies, cp ultrasound. 10/06 22:19 Order name: Basic Metabolic Panel; Complete Time: 00:12 cp 10/07 00:12 Interpretation: Normal except: CL 111; BUN 19; GFR 79; CA 7.9. cp 10/06 22:19 Order name: CBC with Diff; Complete Time: 00:12 cp 10/07 00:12 Interpretation: Normal except: RBC 4.02; HGB 12.4; HCT 36.4; MN% 12.8. cp 10/06 22:19 Order name: LFT's; Complete Time: 00:12 cp 10/06 22:19 Order name: Magnesium; Complete Time: 00:12 cp 10/06 22:19 Order name: NT PRO-BNP; Complete Time: 00:12 cp 10/06 22:19 Order name: PT-INR; Complete Time: 00:12 cp 10/06 22:19 Order name: Troponin (emerg Dept Use Only); Complete Time: 00:12 cp 10/07 01:02 Order name: PTT, Activated Partial Thromb EDMS 10/07 01:02 Order name: CBC with Automated Diff EDMS 10/07 01:02 Order name: CBC with Automated Diff EDMS 10/07 01:02 Order name: Comprehensive Metabolic Panel EDMS 10/07 01:02 Order name: Comprehensive Metabolic Panel EDMS 10/07 01:02 Order name: Protime (+INR) EDMS 10/07 01:02 Order name: Protime (+INR) EDMS 10/06 22:08 Order name: US Extremity Venous W Compression Eduin cp 10/06 22:19 Order name: EKG; Complete Time: 22:20 cp 10/06 22:19 Order name: Cardiac monitoring; Complete Time: 23:10 cp 10/06 22:19 Order name: EKG - Nurse/Tech; Complete Time: 23:10 cp 10/06 22:19 Order name: IV Saline Lock; Complete Time: 23:10 cp 10/06 22:19 Order name: Labs collected and sent; Complete Time: 23:10 cp 10/06 22:19 Order name: O2 Per Protocol; Complete Time: 22:30 cp 10/06 22:19 Order name: O2 Sat Monitoring; Complete Time: 22:30 cp 10/07 01:02 Order name: CONS Pharmacy Consult EDMS 10/07 01:02 Order name: Heart Healthy EDMS EC/31 23:05 Rate is 60 beats/min. Rhythm is regular. SD interval is normal. QRS interval is normal. cp QT interval is normal. Interpreted by me. Reviewed by me. Administered Medications: 23:07 Drug: Zofran 4 mg Route: IVP; Site: right antecubital; jd3 10/07 01:35 Follow up: Response: No adverse reaction ak1 10/06 23:07 Drug: fentaNYL (PF) 25 mcg Route: IVP; Site: right antecubital; jd3 10/07 01:34 Follow up: Response: No adverse reaction; Pain is decreased ak1 00:45 Drug: Eliquis 5 mg Route: PO; jd3 01:34 Follow up: Response: No adverse reaction ak1 01:08 CANCELLED (Patient Refused): morphine 4 mg IVP once jd3 Disposition: 03:14 Co-signature as Attending Physician, Suhas Rosario MD. pkl Disposition: 10/07/18 00:16 Hospitalization ordered by Dwight Kaiser for Observation. Preliminary diagnosis is Acute embolism and thrombosis of deep veins of lower extremity - Left. - Bed requested for Telemetry/MedSurg (observation). - Status is Observation. ak1 - Condition is Stable. - Problem is new. - Symptoms have improved. UTI on Admission? No Signatures: Dispatcher [employer] EDMS Ave Martinez RN RN Suhas Cano MD MD pkl Attema, Lee RN RN la1 Stefanie Flores RN RN ak1 Ernst Kuhn PA PA cp Davies, Jonathon, RN RN jd3 Corrections: (The following items were deleted from the chart) 00:12 00:12 Normal except: CL 111; BUN 19; GFR 79. cp cp 01:08 10/06 22:19 morphine 4 mg IVP once ordered. cp jd3 10/07 01:08 10/06 23:09 morphine 4 mg IVP once given. jd3 jd3 10/07 01:08 01:08 morphine 4 mg IVP once ordered. jd3 jd3 01:23 00:16 Hospitalization Ordered by Dwight Kaiser MD for Observation. Preliminary mw diagnosis is Acute embolism and thrombosis of deep veins of lower extremity - Left. Bed requested for Telemetry/MedSurg (observation). Status is Observation. Condition is Stable. Problem is new. Symptoms have improved. UTI on Admission? No. cp 03:05 01:23 10/07/2018 00:16 Hospitalization Ordered by Dwight Kaiser MD for Observation. ak1 Preliminary diagnosis is Acute embolism and thrombosis of deep veins of lower extremity - Left. Bed requested for Telemetry/MedSurg (observation). Status is Observation. Condition is Stable. Problem is new. Symptoms have improved. UTI on Admission? No. mw
--- NOTE | 2018-10-07 00:17 | ER ---
Nurse's Notes [facility] Name: Justin Khan Age: 53 yrs Sex: Male : 1965 Arrival Date: 10/06/2018 Time: 21:47 Bed 5 Private MD: Diagnosis: Acute embolism and thrombosis of deep veins of lower extremity-Left Presentation: 10/06 21:53 Presenting complaint: Patient states: My left leg started cramping a few days ago and la1 my calf is all swollen up and I have hx of multiple clots. Transition of care: patient was not received from another setting of care. Onset of symptoms was October 06, 2018. Risk Assessment: Do you want to hurt yourself or someone else? Patient reports no desire to harm self or others. Initial Sepsis Screen: Does the patient meet any 2 criteria? No. Patient's initial sepsis screen is negative. Does the patient have a suspected source of infection? No. Patient's initial sepsis screen is negative. Care prior to arrival: None. 21:53 Method Of Arrival: Wheelchair la1 21:53 Acuity: DERIC 3 la1 Triage Assessment: 22:47 General: Appears in no apparent distress. uncomfortable, Behavior is calm, cooperative. ak1 Pain: Complains of pain in left calf. Historical: - Allergies: 21:52 PENICILLINS; la1 - PMHx: 21:52 enlarged prostate; DVT and PE; la1 - PSHx: 10/07 01:38 Knee surgery; ak1 - Immunization history:: Adult Immunizations up to date. - Social history:: Smoking status: Patient/guardian denies using tobacco. - Ebola Screening: : No symptoms or risks identified at this time. Screenin/31 22:05 Abuse screen: Denies threats or abuse. Denies injuries from another. Nutritional ak1 screening: No deficits noted. Tuberculosis screening: No symptoms or risk factors identified. 22:47 Fall Risk None identified. ak1 Assessment: 22:45 General: Appears in no apparent distress. uncomfortable. Pain: Complains of pain in ak1 left calf Quality of pain is described as throbbing. Neuro: No deficits noted. Cardiovascular: No deficits noted. Respiratory: No deficits noted. GI: No signs and/or symptoms were reported involving the gastrointestinal system. : No signs and/or symptoms were reported regarding the genitourinary system. EENT: No signs and/or symptoms were reported regarding the EENT system. Derm: No signs and/or symptoms reported regarding the dermatologic system. Musculoskeletal: Swelling increased pain with palpation. 23:48 Reassessment: Patient appears in no apparent distress at this time. Patient is alert, ak1 oriented x 3, equal unlabored respirations, skin warm/dry/pink. pain decreased since medication. Vital Signs: 21:53 Pulse 65; Resp 18; Temp 98.2; Pulse Ox 98% on R/A; Weight 90.72 kg; Height 5 ft. 9 in. la1 (175.26 cm); Pain 10/10; 21:54 BP 119 / 78; la1 22:49 BP 117 / 80; Pulse 69; Resp 16 S; Pulse Ox 98% on R/A; jd3 23:48 BP 106 / 67; Pulse 62; Resp 14; Temp 98.2; Pulse Ox 98% on R/A; ak1 04 00:00 BP 118 / 77; Pulse 60; Resp 14; Pulse Ox 98% on R/A; ak1 01:05 BP 118 / 74; Pulse 77; Resp 18; Temp 98.2; Pulse Ox 99% on R/A; ak1 02:09 BP 116 / 83; Pulse 61; Resp 14; Pulse Ox 98% on R/A; ak1 10/06 21:53 Body Mass Index 29.53 (90.72 kg, 175.26 cm) la1 ED Course: 10/06 21:47 Patient arrived in ED. am2 21:53 Arm band placed on left wrist. la1 21:54 Triage completed. la1 22:02 Ernst Kuhn PA is PHCP. cp 22:02 Suhas Rosario MD is Attending Physician. cp 22:04 Stefanie Flores, DORIAN is Primary Nurse. ak1 22:47 Patient has correct armband on for positive identification. Bed in low position. Call ak1 light in reach. Side rails up X 1. Adult w/ patient. housekeeper head on. Pulse ox on. NIBP on. 22:55 Inserted saline lock: 18 gauge in right antecubital area, using aseptic technique. jd3 Blood collected. 22:56 US Extremity Venous W Compression Eduin In Process Unspecified. EDMS 22:57 Ultrasound completed. Patient tolerated well. Notified MALLET AND DIE CUTTER/TIM dunlap. sg3 10/07 00:15 Dwight Kaiser MD is Hospitalizing Provider. cp 01:31 No provider procedures requiring assistance completed. Patient admitted, IV remains in ak1 place. Administered Medications: 10/06 23:07 Drug: Zofran 4 mg Route: IVP; Site: right antecubital; jd3 10/07 01:35 Follow up: Response: No adverse reaction ak1 10/06 23:07 Drug: fentaNYL (PF) 25 mcg Route: IVP; Site: right antecubital; jd3 10/07 01:34 Follow up: Response: No adverse reaction; Pain is decreased ak1 00:45 Drug: Eliquis 5 mg Route: PO; jd3 01:34 Follow up: Response: No adverse reaction ak1 01:08 CANCELLED (Patient Refused): morphine 4 mg IVP once jd3 Outcome: 00:16 Decision to Hospitalize by Provider. cp 01:31 Condition: stable ak1 01:31 Instructed on the need for admit. 02:32 Admitted to Med/surg accompanied by tech, via wheelchair, room 411, with chart, Report ak1 called to Ivonne 03:05 Patient left the ED. ak1 Signatures: Dispatcher [employer] EDMS Ugo Kendall RN RN Stefanie Gonzalez RN RN ak1 Ernst Kuhn PA PA cp Moreno, Amanda am2 Davies, Jonathon, RN RN jd3 Luci Ngo sg3 Corrections: (The following items were deleted from the chart) 01:08 10/06 23:09 morphine 4 mg IVP in right antecubital jd3 jd3
[2018-10-07] MEDS ORDERED: APIXABAN 5 MG TABLET ONE (00:38)
[2018-10-07] MEDS: APIXABAN 5 MG TABLET PO SCH ×2 (00:58→07:56)
[2018-10-07] MEDS ORDERED: ACETAMINOPHEN 500 MG TAB PO PRN (00:58)
[2018-10-07] MEDS: NA CHLORIDE 0.9% 1,000 ML IV SCH ×2 (03:42→15:15)
[2018-10-07] MEDS: MORPHINE 2 MG/ML SYR IV PRN ×4 (03:42→23:33)
[2018-10-07 03:48] VITALS: O2SAT 98
[2018-10-07] MEDS: ONDANSETRON 4 MG/2 ML VIAL IV PRN ×3 (03:51→23:34)
[2018-10-07 04:31] VITALS: BMI 28.8
--- NOTE | 2018-10-07 07:49 | RAD REPORT ---
EXAM DESCRIPTION: USExtrem Venous W Compress Bil10/06/2018 10:57 pm CLINICAL HISTORY: Bilateral leg pain COMPARISON: none FINDINGS: Echogenic material consistent with acute thrombus is present within the right popliteal ve in, left superficial femoral and left popliteal veins. Veins are not compressible. No additional thrombus is seen IMPRESSION: Bilateral lower extremity deep veinous thrombosis
[2018-10-07] MEDS ORDERED: INFLUENZA VACCINE (for 3y+) 0.5 ML DOSE IMVAC ONE (08:00)
[2018-10-07 08:05] LABS: Urine Appearance CLEAR; Urine Bilirubin NEGATIVE (NEG); Urine Blood NEGATIVE (NEG); Urine Color YELLOW; Urine Glucose NEGATIVE (NEG); Urine Protein NEGATIVE (NEG)
[2018-10-07 08:06] LABS: Urine Microscopic Reflex NO UMIC
--- NOTE | 2018-10-07 08:13 | P.HP ---
Certification for Inpatient Patient admitted to: Observation With expected LOS: <2 Midnights Patient will require the following post-hospital care: None Practitioner: I am a practitioner with admitting privileges, knowledge of patient current condition, hospital course, and medical plan of care. Services: Services provided to patient in accordance with Admission requirements found in Title 42 Section 412.3 of the Code of Federal Regulations Patient History Date of Service: 10/07/18 Reason for admission: DVT of the left lower extremity History of Present Illness: Patient is a 53-year-old gentleman who came into the hospital with pain in the left lower extremity. Patient was found have a saddle emboli a year ago. At that time, he also had a left lower extremity DVT. He was discharged after 10 days in the hospital after treatment of the saddle emboli with a intra-arterial injection. However, patient has not been compliant with his anti coagulation. Apparently has only taken this sporadically. He comes in once again with a left lower extremity DVT. Spoke to the emergency room physician engineer assistant and initially we decided to discharge patient with a prescription for Eliquis. However, patient was stating that he will not be able to afford it. Will go ahead and admit him as apparently patient does not feel comfortable being discharged. Will discuss the case with case management and see what his best options are. Sometimes there is a prescription card that we can give her patient's and maybe we can assist him with this. Will admit him to the hospital for further evaluation. Allergies Penicillins Allergy (Verified 10/07/18 07:59) Anaphylaxis Home Medications: Apixaban [Eliquis] 5 mg PO BID 10/07/18 - Past Medical/Surgical History Has patient received pneumonia vaccine in the past: No Diabetic: No -: enlarged prostate -: DVT -: Intra-arterial thrombolysis of saddle emboli - Family History Father Medical History: Heart disease - Social History Smoking Status: Current every day smoker Alcohol use: Yes CD- Drugs: Yes Caffeine use: Yes Place of Residence: Home Review of Systems 10-point ROS is otherwise unremarkable Physical Examination - Vital Signs Temperature: 98.0 F Blood Pressure: 135/71 Pulse: 57 Respirations: 16 Pulse Ox (%): 99 - Physical Exam General: Alert, In no apparent distress, Oriented x3 HEENT: Atraumatic, PERRLA, Mucous membr. moist/pink, EOMI, Sclerae nonicteric Neck: Supple, 2+ carotid pulse no bruit, No LAD, Without JVD or thyroid abnormality Respiratory: Clear to auscultation bilaterally, Normal air movement Cardiovascular: Regular rate/rhythm, Normal S1 S2, No murmurs Gastrointestinal: Normal bowel sounds, Soft and benign, Non-distended, No tenderness Musculoskeletal: No clubbing, No swelling, No tenderness Integumentary: No rashes Neurological: Normal gait, Normal speech, Normal strength at 5/5 x4 extr, Normal tone, Sensation intact, Cranial nerves 3-12 intact, Normal affect Lymphatics: No axilla or inguinal lymphadenopathy - Studies Laboratory Data (last 24 hrs) 10/06/18 22:53: PT 11.6, INR 0.98 10/06/18 22:53: WBC 5.7, Hgb 12.4 L, Hct 36.4 L, Plt Count 184 10/06/18 22:53: Sodium 144, Potassium 3.9, BUN 19 H, Creatinine 0.99, Glucose 102, Magnesium 2.1, Total Bilirubin 0.2, AST 80 H, ALT 48, Alkaline Phosphatase 50 Assessment & Plan - Problems (Diagnosis) (1) DVT (deep venous thrombosis) Current Visit: Yes Status: Acute (2) Non-compliance Current Visit: Yes Status: Acute - Plan Plan: 1. Anti coagulation 2. Pain control 3. Social work consultation 4. Possible discharge home after treatment 5. GI and DVT prophylaxis Discharge Plan: Home Plan to discharge in: 24 Hours - Advance Directives Does patient have a Living Will: No Does patient have a Durable POA for Healthcare: No - Code Status/Comfort Care Code Status Assessed: Yes Code Status: Full Code Critical Care: No Time Spent Managing PTS Care (In Minutes): 45
--- NOTE | 2018-10-07 16:39 | P.PN ---
Date of Service: 10/07/18 Patient seen and examined with RN Patient in that he takes Eliquis on a regular basis and he only missed the last 3 days Patient had a history of DVT and PE in 10/2017 hematology consulted for failure of ac and recurrent DVt
[2018-10-07] MEDS: ENOXAPARIN 100 MG/ML SYR SQ SCH (20:58)
--- NOTE | 2018-10-07 22:38 | P.CNS ---
Date of Consult: 10/07/18 (Hematology) REASON FOR CONSULTATION: Concern of failure of anticoagulation HPI: Patient is a 53 year old man, smoker admitted with sudden onset of the left lower extremity swelling and pain. He was noted too have b/l LE DVT. Patient has a h/o of DVT and PE in 10/2017 (extensive DVT and b/l PE / with saddle emboli for which he had received intra-arterial thrombolysis in 2018 in [facility]). Pt apparently was advised to be on apixaban (eliquis). His history seems to be varying with each physicians and I suspect compliance issues due to possible financial strain. He reports having recent injections to the neck for pain relief at which he had to hold the eliquis for a few days. He also reports being off eliquis for the past 3 days as he misplaced the pills. 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 Denies any CP/SOB/ WONG. Denies any autoimmune disease, family history of blood clots or sudden cardiac , recent immbolity, long travel, hormone use. PMH/ PSH as above SH: Smoker/ denies alcohol/ drugs FH: non contributory ROS: a 14 point ROS was done and pertinent points as in HPI EXAMINATION: General Appearance: Well developed, alert, cooperative, appears to be in no acute distress. Skin, Hair & Nails: normal texture, normal turgor and color. No open wounds. Head: normocephalic, atraumatic. Eyes: anicteric, no injection of conjunctivae. Ears: hearing grossly intact. Nose: nares patent. Throat: no erythema, no exudate. Neck: neck supple, without lymphadenopathy. Respiratory: good respiratory effort, clear to auscultation, no wheezing. Cardiovascular: regular rate and rhythm, no murmurs, no cyanosis. Abdomen: bowel sounds present and equal in all four quadrants, abdomen is soft, nondistended, no masses, no hepatosplenomegaly. Peripheral Vascular: no pedal edema. b/l calf swelling and tenderness Musculoskeletal: normal gait, normal posture, 5/5 strength through upper extremities. Neurological: AAOx3, CN II-XII intact, Strength symmetric and intact throughout. Labs: reviewed. PROBLEMS: 1. ACUTE DVT OF B/L EXTREMITIES: Reported as acute DVT on doppler studies. Prior h/o DVT in the lower extremities in 2018. Possible acute on chronic DVT now. Quite inconsistent history. Unclear if his prior dvt was provoked or unprovoked. But it appears he has been non complaint with apixaban (eliquis). This cannot be deemed as apixaban failure. Recommend restart apixaban 10mg bid for 7 days followed by 5mg bid. In the event of financial strain, alternate options are coumadin bridging with lovenox. Strict monitoring of INR mandatory along with diet restrictions. Given his non compliance, I doubt if he will be complaint with blood draws and maintaining therapeutic efficacy. We also discussed about the risk of bleeding with either anticoagulation. Antidote for eliquis is available in certain centers. It is possible he has an underlying thrombophilia and being a second VTE and that too quite extensive, he will need to be on termination clerk anticoagulation if no contraindication. Recommend hypercoagulable work up, though many of the tests might interfere with the anticoagulation and might give false positive results. Nevertheless, recommend checking antiphospholipid antibody panel, lupus anticoagulant, factor V leiden mutation, prothrombin gene mutation, flex, antidsdna, AT III, protein C and protein S. He needs to be quite diligent with compliance and establish care with pcp and follow up with Hematology as outpatient.
[2018-10-08] MEDS: NA CHLORIDE 0.9% 1,000 ML IV SCH (05:08)
[2018-10-08] MEDS: MORPHINE 2 MG/ML SYR IV PRN ×2 (05:08→09:51)
[2018-10-08 05:55] LABS: Protime INR 1.07
[2018-10-08 05:56] LABS: Absolute Monocytes 0.5 K/uL (0.1-1.3); Absolute Neutrophil 2.7 K/uL (1.8-8.0); Basophils % 0.9 % (0-1.3); Eosinophils % 2.8 % (0-4.4); Hematocrit 38.6 % (39.6-49.0); Lymphocytes % 37.2 % (15.3-44.8); MPV 8.9 fL (7.6-11.3); Monocytes % 8.8 % (3.3-12.3); RBC Red Blood Cell Count 4.26 M/uL (4.33-5.43)
[2018-10-08 06:15] LABS: Albumin 3.2 g/dL (3.4-5.0); Bilirubin Total 0.4 mg/dL (0.2-1.0); Protein, Total 6.3 g/dL (6.4-8.2)
[2018-10-08] MEDS: ENOXAPARIN 100 MG/ML SYR SQ SCH (08:11)
[2018-10-08] MEDS: ONDANSETRON 4 MG/2 ML VIAL IV PRN (09:52)
[2018-10-08 13:16] VITALS: BP 126/78; TEMP 98.3
--- NOTE | 2018-10-08 19:02 | P.DS ---
Admission Date: 10/07/18 Discharge Date: 10/08/18 Disposition: ROUTINE DISCHARGE Reason for Admission: DVT of the left lower extremity Brief History of Present Illness: 53-year-old gentleman who came into the hospital with pain in the left lower extremity. Patient was found have a saddle emboli a year ago. At that time, he also had a left lower extremity DVT. He was discharged after 10 days in the hospital after treatment of the saddle emboli with a intra-arterial injection. However, patient has not been compliant with his anti coagulation. Apparently has only taken this sporadically. He comes in once again with a left lower extremity DVT. Hospital Course: pt was managed for: acute DVT lovenox therapeutic dose hematology consult pt was given discount cards for eliquis rx pt instructed to take eliquis 10 mg bid for 7 days then 5 mg bid pt verbalized understanding and he mentioned that he will f/up with pcp in [place] Vital Signs/Physical Exam: Temp Pulse Resp BP Pulse Ox 98.3 F 57 16 126/78 98 10/08/18 12:00 10/08/18 12:00 10/08/18 12:00 10/08/18 12:00 10/08/18 12:00 Laboratory Data at Discharge: WBC 5.4 K/uL (4.3-10.9) 10/08/18 05:34 Hgb 13.1 g/dL (13.6-17.9) L 10/08/18 05:34 Hct 38.6 % (39.6-49.0) L 10/08/18 05:34 Plt Count 169 K/uL (152-406) 10/08/18 05:34 PT 12.6 SECONDS (9.5-12.5) H 10/08/18 05:34 INR 1.07 10/08/18 05:34 APTT 31.1 SECONDS (24.3-36.9) 10/07/18 03:47 Sodium 142 mmol/L (136-145) 10/08/18 05:34 Potassium 4.0 mmol/L (3.5-5.1) 10/08/18 05:34 BUN 10 mg/dL (7-18) 10/08/18 05:34 Creatinine 0.99 mg/dL (0.55-1.3) 10/08/18 05:34 Glucose 92 mg/dL (74-106) 10/08/18 05:34 Magnesium 2.1 mg/dL (1.8-2.4) 10/06/18 22:53 Total Bilirubin 0.4 mg/dL (0.2-1.0) 10/08/18 05:34 AST 57 U/L (15-37) H 10/08/18 05:34 ALT 48 U/L (12-78) 10/08/18 05:34 Alkaline Phosphatase 48 U/L (45-117) 10/08/18 05:34 Home Medications: Apixaban [Eliquis] 5 mg PO BID #60 tablet 10/07/18 Apixaban [Eliquis] 10 mg PO BID 7 Days #14 tablet 10/08/18 New Medications: Apixaban [Eliquis] 5 mg PO BID #60 tablet Apixaban [Eliquis] 10 mg PO BID 7 Days #14 tablet Patient Discharge Instructions: take eliquis 10 mg bid for 7 days then 5 mg bid for 1 month and f/up with pcp for continuation of care Diet: Regular Activity: Ad lucy Followup: Natasha Gutierres MD [ACTIVE - CAN ADMIT] -
[2018-10-08] MEDS ORDERED: APIXABAN 5 MG TABLET PO SCH (21:00)
== END 2018-10-08 13:46 | disposition home or self-care (01) ==
LOC: ER 21:40 → ERHOLD 10-07 00:58 → 4TH 10-07 02:35
PROVIDERS: ADMIT Hospitalist; ATTEND Hospitalist
DX: I82.403 Acute embolism and thrombosis of unspecified deep veins of lower extremity, bilateral (principal); F17.210 Nicotine dependence, cigarettes, uncomplicated; Z91.14 Patient's other noncompliance with medication regimen; Z88.0 Allergy status to penicillin; Z86.718 Personal history of other venous thrombosis and embolism
CPT/HCPCS: 36415; 80048; 80053; 80076; 81003; 83735; 83880; 84484; 85025; 85610; 85730; 93970; 96374; 96375; 99285; G0378; J1650; J2270; J2405; J3010; J7030